=== PATIENT | male | born 1985 | race Caucasian/White ===

== ENCOUNTER 2016-11-20 16:04 | Inpatient (IN) | payer OTHER ==
[2016-11-20 17:37] VITALS: BMI 24.3
--- NOTE | 2016-11-20 17:50 | HP ---
COWS - Scale Resting Pulse: 2= ME 101-120 Sweatin= Chills/Flushing Restless Observation: 3= Extraneous Movement Pupil Size: 0= Normal to Room Light Bone or Joint Aches: 1= Mild Discomfort Runny Nose/ Eye Tearin= Runny Nose/Eyes GI Upset > 30mins: 3= Vomiting/Diarrhea Tremor Observation: 2= Slight Tremor Visible Yawning Observation: 0= None Anxiety or Irritability: 2=Irritable/Anxious Goose Flesh Skin: 0=Smooth Skin COWS Score: 16 Admission [facility] Chief Complaint: withdrawal sx Allergies/Adverse Reactions: Allergies Allergy/AdvReac Type Severity Reaction Status Date / Time No Known Allergies Allergy Verified 11/20/16 17:49 History of Present Illness: 30 years old male with long history of opiate nicotine dependence, denies medical issue has bipolar ii longest sobriety 3 years is admitted to detox Exam Limitations: No Limitations - Ebola screening Have you traveled outside of the country in the last 21 days: No Have you had contact with anyone from an Ebola affected area: No Have you been sick,other than usual withdrawal symptoms: No Do you have a fever: No - Review of Systems Constitutional: Chills, Loss of Appetite, Changes in sleep, Unexplained wgt Loss EENT: reports: Blurred Vision (left eye x "months") Respiratory: reports: Cough, SOB at Rest Cardiac: reports: Palpitations GI: reports: Diarrhea, Nausea, Poor Appetite, Poor Fluid Intake, Vomiting, Indigestion, Abdominal cramping : reports: No Symptoms Reported Musculoskeletal: reports: Back Pain Integumentary: reports: No Symptoms Reported Neuro: reports: Tremors Endocrine: reports: No Symptoms Reported Hematology: reports: No Symptoms Reported Psychiatric: reports: Judgement Intact, Orientated x3 Other Systems: Reviewed and Negative Patient History - Patient Medical History Hx Anemia: No Hx Asthma: No Hx Chronic Obstructive Pulmonary Disease (COPD): No Hx Cancer: No Hx Cardiac Disorders: No Hx Congestive Heart Failure: No Hx Hypertension: No Hx Hypercholesterolemia: No Hx Pacemaker: No HX Cerebrovascular Accident: No Hx Seizures: No Hx Dementia: No Hx Diabetes: No Hx Gastrointestinal Disorders: No Hx Liver Disease: No Hx Genitourinary Disorders: No Hx Sexually Transmitted Disorders: No Hx Renal Disease (ESRD): No Hx Thyroid Disease: No Hx Human Immunodeficiency Virus (HIV): No Hx Hepatitis C: No Hx Depression: No Hx Suicide Attempt: No Hx Bipolar Disorder: Yes Hx Schizophrenia: No - Patient Surgical History Past Surgical History: No - PPD History Previous Implant?: Yes Documented Results: Negative w/o proof Implanted On Prior [facility] Admission?: No PPD to be Administered?: Yes - Smoking Cessation Smoking history: Current every day smoker Have you smoked in the past 12 months: Yes Aproximately how many cigarettes per day: 10 Cigars Per Day: 0 Hx Chewing Tobacco Use: No Initiated information on smoking cessation: Yes 'Breaking Loose' booklet given: 11/20/16 - Substance & Tx. History Hx Alcohol Use: No Hx Substance Use: Yes Substance Use Type: Cocaine, Marijuana, Opiates Hx Substance Use Treatment: Yes - Substances Abused Heroin Route: Inhalation Frequency: Daily Amount used: 20 bags Age of first use: 20 Date of Last Use: 11/19/16 Family Disease History - Family Disease History Family Disease History: Diabetes: Father, Heart Disease: Father, Other: Mother ( kidney) Admission Physical Exam S - Vital Signs Vital Signs: Vital Signs - 24 hr 11/20/16 17:34 Temperature 99.2 F Pulse Rate 102 H Respiratory 20 Rate Blood Pressure 126/81 - Physical General Appearance: Yes: Appropriately Dressed, Moderate Distress, Thin, Tremorous, Irritable, Sweating, Anxious HEENTM: Yes: Hearing grossly Normal, Normal ENT Inspection, Normocephalic, Normal Voice Neck: Yes: Supple, Trachea in good position Breast: Yes: Breasts Symetrical Cardiology: Yes: Tachycardia Abdominal: Yes: Non Tender, Soft, Increased Bowel Sounds Genitourinary: Yes: Within Normal Limits Back: Yes: Normal Inspection Musculoskeletal: Yes: full range of Motion, Gait Steady, Back pain Extremities: Yes: Normal Range of Motion, Non-Tender, Tremors Neurological: Yes: Fully Oriented, Alert, Motor Strength 5/5, Normal Response Integumentary: Yes: Warm Lymphatic: Yes: Within Normal Limits - Diagnostic (1) Opioid dependence with withdrawal Current Visit: Yes Status: Acute (2) Cocaine dependence, uncomplicated Current Visit: Yes Status: Chronic (3) Cannabis dependence, uncomplicated Current Visit: Yes Status: Chronic (4) Nicotine dependence Current Visit: Yes Status: Acute Qualifiers: Nicotine product type: cigarettes Substance use status: in withdrawal Qualified Code(s): F17.213 - Nicotine dependence, cigarettes, with withdrawal (5) Weight loss Current Visit: Yes Status: Acute (6) Bipolar II disorder Current Visit: Yes Status: Suspected (7) GERD (gastroesophageal reflux disease) Current Visit: Yes Status: Acute Qualifiers: Esophagitis presence: without esophagitis Qualified Code(s): K21.9 - Gastro-esophageal reflux disease without esophagitis Cleared for Admission S - Detox or Rehab [facility] Level of Care: Medically Managed Detox Regimen/Protocol: Methadone S Breath Alcohol Content Breath Alcohol Content: 0 Urine Drug Screen - Control Is Test Valid: Yes - Results Drug Screen Negative: No Urine Drug Screen Results: THC-Marijuana, BRISEIDA-Cocaine, OPI-Opiates, MTD- Methadone, TCA-Tricyclic Antidepress, OXY-Oxycodone
[2016-11-20] MEDS ORDERED: LOPERAMIDE HCL 2 MG CAPSULE PO PRN (17:57)
[2016-11-20] MEDS ORDERED: MAGNESIUM CITRATE 300 ML BOTTLE PO PRN (17:57)
[2016-11-20] MEDS ORDERED: guaiFENesin/D-METHORPHAN HB 10 ML UNIT-DOSE CUPS PO PRN (17:57)
[2016-11-20] MEDS ORDERED: MAG HYDROX/AL HYDROX/SIMETH 30 ML UNIT-DOSE CUP PO PRN (17:57)
[2016-11-20] MEDS ORDERED: ACETAMINOPHEN 325 MG TABLET (FP) PO PRN (17:57)
[2016-11-20] MEDS ORDERED: MENTHOL/PHENOL 1 EACH UD MM PRN (17:57)
[2016-11-20] MEDS ORDERED: METHADONE HCL 10 MG TABLET (FOR DETOX USE ONLY) PO ONE ×2 (18:30→23:00)
[2016-11-20] MEDS: diazePAM 5 MG TABLET PO PRN (19:23)
[2016-11-20 20:35] LABS: URINE APPEARANCE CLOUDY; URINE BILIRUBIN NEGATIVE (NEGATIVE); URINE BLOOD NEGATIVE (NEGATIVE); URINE COLOR DKYELLOW; URINE GLUCOSE (UA) NEGATIVE (NEGATIVE); URINE KETONE 2+ (NEGATIVE); URINE LEUK ESTERASE NEGATIVE (NEGATIVE); URINE NITRITE NEGATIVE (NEGATIVE); URINE UROBILINOGEN 2.0 E.U/dl E.U./dl (0.2-1.0)
[2016-11-20 20:41] LABS: URINE PROTEIN 1+ (NEGATIVE)
[2016-11-20 20:47] LABS: URINE MUCUS MANY; URINE RBC 7 /hpf (0-3); URINE WBC 17 /hpf (3-5); YEAST MANY
[2016-11-20] MEDS: THIAMINE HCL 100 MG TABLET (FP) PO SCH (22:30)
[2016-11-20] MEDS: RANITIDINE HCL 150 MG TABLET (FP) PO SCH (22:30)
[2016-11-21] MEDS: diazePAM 5 MG TABLET PO PRN ×3 (07:18→20:41)
[2016-11-21] MEDS: ONDANSETRON *ODT* 4 MG TABLET SL PRN (08:51)
--- NOTE | 2016-11-21 08:52 | CONSULT ---
[facility] Psychiatric Consult - Data Date of interview: 11/21/16 Admission source: [facility] Identifying data: This is 30 years old male with history of Bipolar disorder intoxicated with Heroin and Nicotine, Cannabis, Cocaine Substance Abuse History: - Smoking Cessation. Smoking history: Current every day smoker. Have you smoked in the past 12 months: Yes. Aproximately how many cigarettes per day: 10. Cigars Per Day: 0. Hx Chewing Tobacco Use: No. Initiated information on smoking cessation: Yes. 'Breaking Loose' booklet given : 11/20/16. - Substance & Tx. History. Hx Alcohol Use: No. Hx Substance Use: Yes. Substance Use Type: Cocaine, Marijuana, Opiates. Hx Substance Use Treatment: Yes. - Substances Abused. Heroin. Route: Inhalation. Frequency : Daily. Amount used: 20 bags. Age of first use: 20. Date of Last Use: Medical History: GERD, Weight loss history Psychiatric History: Patient reprotsm unclear history of Bipolar disorder, demies history of psychiatric admissions, reports no medications taking prior to admission Physical/Sexual Abuse/Trauma History: Denies Additional Comment: 0bservation. Detox Unit Care Protocol. Urine Drug Screen Results: THC-Marijuana, BRISEIDA-Cocaine, OPI-Opiates, MTD-Methadone, TCA-Tricyclic Antidepress, OXY-Oxycodone Mental Status Exam - Mental Status Exam Alert and Oriented to: Person Cognitive Function: Fair Patient Appearance: Well Groomed Mood: Apprehensive Affect: Mood Congruent Patient Behavior: Cooperative Speech Pattern: Appropriate Voice Loudness: Normal Thought Process: Goal Oriented Thought Disorder: Being Controlled Hallucinations: Denies Suicidal Ideation: Denies Homicidal Ideation: Denies Sleep: Difficulty falling asleep Appetite: Fair Muscle strength/Tone: Normal Gait/Station: Normal Additional Comments: 0bservation. Detox Unit Care Protocol Psychiatric Findings - Problem List ([place] 1, 2,3) (1) Nicotine dependence Current Visit: Yes Status: Acute Qualifiers: Nicotine product type: cigarettes Substance use status: in withdrawal Qualified Code(s): F17.213 - Nicotine dependence, cigarettes, with withdrawal (2) Opioid dependence with withdrawal Current Visit: Yes Status: Acute (3) Cannabis dependence, uncomplicated Current Visit: Yes Status: Chronic (4) Cocaine dependence, uncomplicated Current Visit: Yes Status: Chronic (5) Drug-induced mood disorder Current Visit: Yes Status: Acute - Initial Treatment Plan Initial Treatment Plan: 0bservation. Detox Unit Care Protocol
[2016-11-21] MEDS ORDERED: cloNIDine HCL 0.1 MG TABLET PO ONE (09:51)
[2016-11-21] MEDS ORDERED: METHADONE HCL 10 MG TABLET (FOR DETOX USE ONLY) PO ONE (10:00)
[2016-11-21 10:06] LABS: MCH 30.8 pg (25.7-33.7); MCHC 33.9 g/dl (32.0-35.9); MEAN CELL VOLUME 90.9 fl (80-96); MEAN PLT VOLUME 8.3 fl (7.5-11.1); PLATELET COUNT 329 K/MM3 (134-434); RDW 13.7 % (11.9-15.9); WHITE BLOOD COUNT 6.7 K/mm3 (4.0-10.0)
[2016-11-21 10:19] LABS: ALBUMIN 4.1 g/dl (3.4-5.0); ANION GAP 8 (8-16); CALCIUM 9.1 mg/dL (8.5-10.1); CO2 29 mmol/L (21-32); CREATININE 0.9 mg/dL (0.7-1.3); GLUCOSE,RANDOM 87 mg/dL (74-106); SGOT/AST 21 U/L (15-37); SGPT/ALT 35 U/L (12-78)
[2016-11-21 10:21] LABS: ALK PHOS 79 U/L (45-117); BILIRUBIN,TOTAL 0.6 mg/dL (0.2-1.0); TOT PROT 7.8 g/dl (6.4-8.2)
[2016-11-21] MEDS: PRENATAL VITAMINS W/ FOLIC ACID TABLET (FP) PO SCH (10:21)
[2016-11-21] MEDS: RANITIDINE HCL 150 MG TABLET (FP) PO SCH ×2 (10:21→22:40)
[2016-11-21] MEDS: NICOTINE 14 MG/24 HOURS TOPICAL PATCH TD SCH (10:22)
--- NOTE | 2016-11-21 10:40 | PN ---
S COWS - Scale Resting Pulse: 2= ID 101-120 Sweatin=Flushed/Facial Moisture Restless Observation: 1= Difficult to Sit Still Pupil Size: 0= Normal to Room Light Bone or Joint Aches: 2= Severe Diffuse Aches Runny Nose/ Eye Tearin= None GI Upset > 30mins: 2= Nausea/Diarrhea Tremor Observation of Outstretched Hands: 2= Slight Tremor Visible Yawning Observation: 1= 1-2x During Session Anxiety or Irritability: 2=Irritable/Anxious Goose Flesh Skin: 3=Piloerection COWS Score: 17 BHS Progress Note (SOAP) Subjective: nausea sweats muscle spasms shakes agitation interrupted sleep irritable Objective: 11/21/16 10:39 Vital Signs Temperature 95.7 F L 11/21/16 09:52 Pulse Rate 124 H 11/21/16 09:52 Respiratory Rate 16 11/21/16 09:52 Blood Pressure 129/77 11/21/16 09:52 O2 Sat by Pulse Oximetry (%) Laboratory Tests 11/20/16 11/21/16 11/21/16 19:45 07:00 07:00 WBC 6.7 RBC 4.47 Hgb 13.8 Hct 40.6 MCV 90.9 MCHC 33.9 RDW 13.7 Plt Count 329 MPV 8.3 Sodium 141 Potassium 4.2 Chloride 104 Carbon Dioxide 29 Anion Gap 8 BUN 12 Creatinine 0.9 Creat Clearance w eGFR > 60 Random Glucose 87 Calcium 9.1 Total Bilirubin 0.6 AST 21 ALT 35 Alkaline Phosphatase 79 Total Protein 7.8 Albumin 4.1 Urine Color Dkyellow Urine Appearance Cloudy Urine pH 7.0 Ur Specific [place] 1.030 Urine Protein 1+ H Urine Glucose (UA) Negative Urine Ketones 2+ H Urine Blood Negative Urine Nitrite Negative Urine Bilirubin Negative Urine Urobilinogen 2.0 e.u/dl Ur Leukocyte Esterase Negative Urine RBC 7 Urine WBC 17 Urine Mucus Many Urine Yeast Many repeat u/a awake/alert ambulating no acute distress Assessment: 11/21/16 10:39 withdrawal sx Plan: continue detox increase fluids clonidine 0.1mg x one flexiril 10mg prn
--- NOTE | 2016-11-21 12:41 | EKG ---
Test Reason : Blood Pressure : / mmHG Vent. Rate : 085 BPM Atrial Rate : 085 BPM P-R Int : 124 ms QRS Dur : 092 ms QT Int : 366 ms P-R-T Axes : 037 076 044 degrees QTc Int : 435 ms NORMAL SINUS RHYTHM MODERATE VOLTAGE CRITERIA FOR LVH, MAY BE NORMAL VARIANT BORDERLINE ECG NO PREVIOUS ECGS AVAILABLE Confirmed by RONAL RIOS MD ([id number]) on 11/21/2016 12:41:29 PM Referred By: Confirmed By:RONAL RIOS MD
[2016-11-21] MEDS: MAGNESIUM HYDROX 2400MG/30ML ORAL SUSPENSION 30 ML CUP PO PRN (15:50)
[2016-11-21] MEDS: THIAMINE HCL 100 MG TABLET (FP) PO SCH (22:40)
[2016-11-21] MEDS: diphenhydrAMINE HCL 50 MG CAPSULE PO PRN (22:41)
[2016-11-22] MEDS: diazePAM 5 MG TABLET PO PRN ×3 (08:32→22:29)
[2016-11-22] MEDS: ONDANSETRON *ODT* 4 MG TABLET SL PRN (08:32)
[2016-11-22] MEDS: P-EPHED 60MG/TRIPROLIDI 2.5MG TABLET PO PRN ×2 (08:32→17:04)
[2016-11-22] MEDS ORDERED: METHADONE HCL 5 MG TABLET (FOR DETOX USE ONLY) PO ONE (10:00)
[2016-11-22] MEDS: PRENATAL VITAMINS W/ FOLIC ACID TABLET (FP) PO SCH (10:22)
[2016-11-22] MEDS: NICOTINE 14 MG/24 HOURS TOPICAL PATCH TD SCH (10:23)
[2016-11-22] MEDS: RANITIDINE HCL 150 MG TABLET (FP) PO SCH ×2 (10:23→22:29)
[2016-11-22] MEDS: CYCLOBENZAPRINE HCL 10 MG TABLET (FP) PO PRN (10:23)
--- NOTE | 2016-11-22 10:28 | PN ---
BHS COWS - Scale Resting Pulse: 1= NE 81-100 Sweatin=Flushed/Facial Moisture Restless Observation: 1= Difficult to Sit Still Pupil Size: 0= Normal to Room Light Bone or Joint Aches: 1= Mild Discomfort Runny Nose/ Eye Tearin= Runny Nose/Eyes GI Upset > 30mins: 0= None Tremor Observation of Outstretched Hands: 2= Slight Tremor Visible Yawning Observation: 2= >3x During Session Anxiety or Irritability: 1=Feels Anxious/Irritable Goose Flesh Skin: 0=Smooth Skin COWS Score: 12 BHS Progress Note (SOAP) Subjective: nasal excoriation sweats shakes agitation interrupted sleep Objective: 11/22/16 10:27 Vital Signs Temperature 96.4 F L 11/22/16 09:31 Pulse Rate 79 11/22/16 09:31 Respiratory Rate 18 11/22/16 09:31 Blood Pressure 116/66 11/22/16 09:31 O2 Sat by Pulse Oximetry (%) Laboratory Tests 11/20/16 11/21/16 11/21/16 19:45 07:00 07:00 WBC 6.7 RBC 4.47 Hgb 13.8 Hct 40.6 MCV 90.9 MCHC 33.9 RDW 13.7 Plt Count 329 MPV 8.3 Sodium 141 Potassium 4.2 Chloride 104 Carbon Dioxide 29 Anion Gap 8 BUN 12 Creatinine 0.9 Creat Clearance w eGFR > 60 Random Glucose 87 Calcium 9.1 Total Bilirubin 0.6 AST 21 ALT 35 Alkaline Phosphatase 79 Total Protein 7.8 Albumin 4.1 Urine Color Dkyellow Urine Appearance Cloudy Urine pH 7.0 Ur Specific [place] 1.030 Urine Protein 1+ H Urine Glucose (UA) Negative Urine Ketones 2+ H Urine Blood Negative Urine Nitrite Negative Urine Bilirubin Negative Urine Urobilinogen 2.0 e.u/dl Ur Leukocyte Esterase Negative Urine RBC 7 Urine WBC 17 Urine Mucus Many Urine Yeast Many RPR Titer Hepatitis C Antibody 11/21/16 11/21/16 07:00 07:00 WBC RBC Hgb Hct MCV MCHC RDW Plt Count MPV Sodium Potassium Chloride Carbon Dioxide Anion Gap BUN Creatinine Creat Clearance w eGFR Random Glucose Calcium Total Bilirubin AST ALT Alkaline Phosphatase Total Protein Albumin Urine Color Urine Appearance Urine pH Ur Specific [place] Urine Protein Urine Glucose (UA) Urine Ketones Urine Blood Urine Nitrite Urine Bilirubin Urine Urobilinogen Ur Leukocyte Esterase Urine RBC Urine WBC Urine Mucus Urine Yeast RPR Titer Nonreactive Hepatitis C Antibody <0.1 repeat u/a awake/alert ambulating no acute distress Assessment: 11/22/16 10:29 withdrawal sx Plan: continue detox increase fluids repeat u/a result pending muprocin oint to nasal area ordered
[2016-11-22] MEDS: MUPIROCIN 2% TOPICAL OINTMENT 22 GM TUBE TP SCH ×2 (12:13→22:29)
[2016-11-22 14:30] LABS: URINE APPEARANCE CLEAR; URINE BILIRUBIN NEGATIVE (NEGATIVE); URINE BLOOD NEGATIVE (NEGATIVE); URINE COLOR YELLOW; URINE GLUCOSE (UA) NEGATIVE (NEGATIVE); URINE KETONE NEGATIVE (NEGATIVE); URINE LEUK ESTERASE NEGATIVE (NEGATIVE); URINE NITRITE NEGATIVE (NEGATIVE); URINE PROTEIN NEGATIVE (NEGATIVE); URINE UROBILINOGEN NEGATIVE E.U./dl (0.2-1.0)
[2016-11-22] MEDS: diphenhydrAMINE HCL 50 MG CAPSULE PO PRN (22:29)
[2016-11-22] MEDS: THIAMINE HCL 100 MG TABLET (FP) PO SCH (22:29)
[2016-11-23] MEDS: diazePAM 5 MG TABLET PO PRN ×4 (05:19→17:26)
[2016-11-23] MEDS ORDERED: METHADONE HCL 5 MG TABLET (FOR DETOX USE ONLY) PO ONE (10:00)
[2016-11-23] MEDS: PRENATAL VITAMINS W/ FOLIC ACID TABLET (FP) PO SCH (10:16)
[2016-11-23] MEDS: MUPIROCIN 2% TOPICAL OINTMENT 22 GM TUBE TP SCH ×2 (10:16→22:16)
[2016-11-23] MEDS: RANITIDINE HCL 150 MG TABLET (FP) PO SCH ×2 (10:16→22:16)
[2016-11-23] MEDS: NICOTINE 14 MG/24 HOURS TOPICAL PATCH TD SCH (10:16)
[2016-11-23] MEDS: CYCLOBENZAPRINE HCL 10 MG TABLET (FP) PO PRN ×2 (10:16→22:16)
--- NOTE | 2016-11-23 10:51 | PN ---
S Progress Note (SOAP) Subjective: ALERT,IRRITABLE,ANXIOUS,INTERRUPTED SLEEP,PAIN IN THE BODY AND BACK Objective: 11/23/16 10:50 Vital Signs Temperature 97.7 F 11/23/16 06:00 Pulse Rate 72 11/23/16 06:00 Respiratory Rate 18 11/23/16 06:00 Blood Pressure 109/60 11/23/16 06:00 O2 Sat by Pulse Oximetry (%) Assessment: 11/23/16 10:50 WITHDRAWAL SYMPTOM Plan: CONTINUE DETOX
[2016-11-23] MEDS: MAGNESIUM HYDROX 2400MG/30ML ORAL SUSPENSION 30 ML CUP PO PRN (13:21)
[2016-11-23] MEDS: THIAMINE HCL 100 MG TABLET (FP) PO SCH (22:16)
[2016-11-23] MEDS: diphenhydrAMINE HCL 50 MG CAPSULE PO PRN (22:18)
[2016-11-24] MEDS: hydrOXYzine PAMOATE 50 MG CAPSULE (FP) PO PRN ×3 (09:00→17:34)
[2016-11-24] MEDS: P-EPHED 60MG/TRIPROLIDI 2.5MG TABLET PO PRN ×2 (09:01→17:34)
[2016-11-24] MEDS ORDERED: METHADONE HCL 10 MG TABLET (FOR DETOX USE ONLY) PO ONE (10:00)
[2016-11-24] MEDS: CYCLOBENZAPRINE HCL 10 MG TABLET (FP) PO PRN (10:00)
[2016-11-24] MEDS: PRENATAL VITAMINS W/ FOLIC ACID TABLET (FP) PO SCH (10:27)
[2016-11-24] MEDS: cloNIDine HCL 0.1 MG TABLET PO SCH ×2 (10:28→22:21)
[2016-11-24] MEDS: NICOTINE 14 MG/24 HOURS TOPICAL PATCH TD SCH (10:28)
[2016-11-24] MEDS: MUPIROCIN 2% TOPICAL OINTMENT 22 GM TUBE TP SCH ×2 (10:28→22:20)
[2016-11-24] MEDS: RANITIDINE HCL 150 MG TABLET (FP) PO SCH ×2 (10:29→22:21)
--- NOTE | 2016-11-24 11:44 | PN ---
S Progress Note (SOAP) Subjective: ALERT,IRRITABLE,ANXIOUS,INTERRUPTED SLEEP Objective: 11/24/16 11:44 Vital Signs Temperature 97.7 F 11/24/16 10:00 Pulse Rate 88 11/24/16 10:00 Respiratory Rate 18 11/24/16 10:00 Blood Pressure 109/75 11/24/16 10:00 O2 Sat by Pulse Oximetry (%) Assessment: 11/24/16 11:44 WITHDRAWAL SYMPTOM Plan: CONTINUE DETOX
[2016-11-24] MEDS: NICOTINE POLACRILEX 2 MG GUM BUC PRN (20:13)
[2016-11-24] MEDS: THIAMINE HCL 100 MG TABLET (FP) PO SCH (22:21)
[2016-11-24] MEDS: diphenhydrAMINE HCL 50 MG CAPSULE PO PRN (22:23)
[2016-11-25] MEDS: hydrOXYzine PAMOATE 50 MG CAPSULE (FP) PO PRN ×2 (05:47→10:25)
[2016-11-25] MEDS: NICOTINE POLACRILEX 2 MG GUM BUC PRN ×2 (05:48→10:25)
[2016-11-25] MEDS ORDERED: METHADONE HCL 5 MG TABLET (FOR DETOX USE ONLY) PO ONE (06:00)
[2016-11-25] MEDS: cloNIDine HCL 0.1 MG TABLET PO SCH (10:23)
[2016-11-25] MEDS: PRENATAL VITAMINS W/ FOLIC ACID TABLET (FP) PO SCH (10:23)
[2016-11-25] MEDS: CYCLOBENZAPRINE HCL 10 MG TABLET (FP) PO PRN (10:23)
[2016-11-25] MEDS: RANITIDINE HCL 150 MG TABLET (FP) PO SCH (10:23)
[2016-11-25] MEDS: NICOTINE 14 MG/24 HOURS TOPICAL PATCH TD SCH (10:24)
--- NOTE | 2016-11-25 10:36 | PN ---
S Progress Note (SOAP) Subjective: ALERT,NO COMPLAINT Objective: 11/25/16 10:35 Vital Signs Temperature 97.0 F L 11/25/16 07:36 Pulse Rate 79 11/25/16 07:36 Respiratory Rate 18 11/25/16 07:36 Blood Pressure 104/63 11/25/16 07:36 O2 Sat by Pulse Oximetry (%) Assessment: 11/25/16 10:35 DETOX COMPLETED,NO WITHDRAWAL SYMPTOM Plan: DISCHARGE TODAY,FOLLOW UP WITH AFTER CARE PROGRAM [facility]
[2016-11-25 10:39] VITALS: BP 111/55; PULSE 77; TEMP 98.5
--- NOTE | 2016-11-25 10:41 | DS ---
[facility] Detox Discharge Summary Admission Date: 11/20/16 Discharge Date: 11/25/16 - History Present History: Cannabis Dependence, Cocaine Dependence, Opioid Dependence Additional Comments: FOLLOW UP WITH AFTER CARE PROGRAM [facility] Pertinent Past History: GERD WEIGHT LOSS BIPOLAR 2 DISORDER 2 DISORDER - Physical Exam Results Vital Signs: Vital Signs Temperature 97.0 F L 11/25/16 07:36 Pulse Rate 79 11/25/16 07:36 Respiratory Rate 18 11/25/16 07:36 Blood Pressure 104/63 11/25/16 07:36 O2 Sat by Pulse Oximetry (%) Pertinent Admission Physical Exam Findings: WITHDRAWAL SYMPTOM - Treatment Hospital Course: Detox Protocol Followed, Detoxed Safely, Responded well, Discharged Condition Good, Rehab Referral Accepted Patient has Accepted a Rehab Referral to: [facility] - Medication Discharge Medications: Ambulatory Orders Unobtainable [Unobtainable] 11/20/16 - AMA Did Patient Leave Against Medical Advice: No
== END 2016-11-25 12:15 | disposition other institution (70) | DRG 773 ==
LOC: YASAS 16:04 → Y6N 18:23
PROVIDERS: ADMIT Internal Medicine Addiction Medicine; ATTEND Internal Medicine Addiction Medicine
PROC: HZ2ZZZZ Detoxification Services for Substance Abuse Treatment (ICD-10-PCS; principal; 2016-11-25)
DX: F11.23 Opioid dependence with withdrawal (principal); F14.20 Cocaine dependence, uncomplicated; F12.20 Cannabis dependence, uncomplicated; F17.210 Nicotine dependence, cigarettes, uncomplicated; F19.24 Other psychoactive substance dependence with psychoactive substance-induced mood disorder
CPT/HCPCS: 36415; 80053; 81003; 81015; 85027; 86593; 86803; 93005; 93010

== ENCOUNTER 2016-11-25 14:13 | Inpatient (IN) | payer OTHER ==
[2016-11-25] MEDS ORDERED: MAG HYDROX/AL HYDROX/SIMETH 30 ML UNIT-DOSE CUP PO PRN (14:29)
[2016-11-25] MEDS ORDERED: guaiFENesin/D-METHORPHAN HB 10 ML UNIT-DOSE CUPS PO PRN (14:29)
[2016-11-25] MEDS ORDERED: MAGNESIUM HYDROX 2400MG/30ML ORAL SUSPENSION 30 ML CUP PO PRN (14:29)
[2016-11-25] MEDS ORDERED: MAGNESIUM CITRATE 300 ML BOTTLE PO PRN (14:29)
[2016-11-25] MEDS ORDERED: P-EPHED 60MG/TRIPROLIDI 2.5MG TABLET PO PRN (14:29)
[2016-11-25] MEDS ORDERED: IBUPROFEN 400 MG TABLET (FP) PO PRN (14:29)
[2016-11-25] MEDS ORDERED: MENTHOL/PHENOL 1 EACH UD MM PRN (14:29)
[2016-11-25] MEDS ORDERED: LOPERAMIDE HCL 2 MG CAPSULE PO PRN (14:29)
--- NOTE | 2016-11-25 14:34 | HP ---
[facility] Rehab Assess/Revision - Admission History Admitted to Rehab [facility]: [facility] Date of Admission to Rehab: 11/25/16 - Vital signs Vital Signs: Vital Signs Period Temp Pulse Resp BP Sys/Albert Pulse Ox Last 24 Hr 98.7 F 79 112/78 - Findings Detox History & Physical reviewed: Yes Concur with findings: Yes Comments/Additional Findings: FOR REHAB PROTOCOL
[2016-11-25] MEDS: NICOTINE 21 MG/24 HOURS TOPICAL PATCH TD SCH (15:09)
[2016-11-25] MEDS: hydrOXYzine PAMOATE 50 MG CAPSULE (FP) PO PRN ×2 (15:52→21:04)
[2016-11-25] MEDS: NICOTINE POLACRILEX 2 MG GUM BUC PRN ×2 (15:52→19:03)
[2016-11-25] MEDS: THIAMINE HCL 100 MG TABLET (FP) PO SCH (21:04)
[2016-11-25] MEDS: diphenhydrAMINE HCL 50 MG CAPSULE PO PRN (21:52)
--- NOTE | 2016-11-26 07:37 | HP ---
Psychiatrist Admission - Data Date of interview: 11/26/16 Admission source: [facility] Identifying data: This is the first [facility] admission for this 30 years old male, father of a 3 years old daughter, unemployed on food stamp, homeless seeking rehab treatment for heroin, cocaine and marijuana. seeking rehab treatment for heroin and marijuana Medical History: Unremarkable Psychiatric History: Reports that his first psychiatric contact was approximately 10 months ago when he was admitted to [facility] for acting strange. He said that he acted like that becuase he was trying to stop using heroin on his own. Reports that he was there for 14 days, diagnosed with Bipolar Disorder and treated with Risperdal. Following discharge, he attended [facility] program for 2 months and was taken off medication by the staff psychiatrist there. Claims he did not complete the program since he was looking for a job.Denies history of suicidal attempt Physical/Sexual Abuse/Trauma History: Denies history of physical, sexual abuse as well as DV relationship Additional Comment: Reports history of arrests for sleeping in a running car and possession of marijuana. Claims the sports trainer gave him a fine when he went to court Vital Signs: Vital Signs - 24 hr 11/25/16 11/26/16 11/26/16 14:30 00:30 03:30 Temperature 98.7 F Pulse Rate 79 Respiratory 18 18 Rate Blood Pressure 112/78 11/26/16 06:00 Temperature 98.1 F Pulse Rate 74 Respiratory 18 Rate Blood Pressure 107/67 Allergies/Adverse Reactions: Allergies Allergy/AdvReac Type Severity Reaction Status Date / Time No Known Allergies Allergy Verified 11/20/16 17:49 Date of last physical exam: 11/20/16 Concur with the findings of this exam: Yes - Substance Abuse/Tx History Hx Alcohol Use: No Hx Substance Use: Yes Substance Use Type: Cocaine (Started using cocaine at age 20, consumes 20 bags daily. Last used on 11/20/16), Heroin (Started using heroin at age 20, consumes 20 bags daily. Last used on 11/19/16), Marijuana (Started smoking marijuana at age 14, consumes 2 bags daily, Last smoked on 11/20/16) Hx Substance Use Treatment: Yes (multiple previous inpt detox & 2-3 inpt rehab( incomplete)) - Admission Criteria Previous failed treatment: Yes Poor recovery environment: Yes Lacks judgement: Yes Mental Status Exam - Mental Status Exam Alert and Oriented to: Time, Place, Person Cognitive Function: Fair Patient Appearance: Well Groomed Mood: Anxious Affect: Appropriate Patient Behavior: Cooperative Speech Pattern: Clear Voice Loudness: Normal Thought Process: Intact Thought Disorder: Not Present Hallucinations: Denies Suicidal Ideation: Denies Homicidal Ideation: Denies Insight/Judgement: Fair Sleep: Poorly Appetite: Good Muscle strength/Tone: Normal Gait/Station: Normal Psychiatric Findings - Problem List ([place] 1, 2,3) (1) Opioid dependence with withdrawal Current Visit: No Status: Acute (2) Cocaine dependence, uncomplicated Current Visit: No Status: Chronic (3) Cannabis dependence, uncomplicated Current Visit: Yes Status: Acute (4) Nicotine dependence Current Visit: No Status: Acute Qualifiers: Nicotine product type: cigarettes Substance use status: in withdrawal Qualified Code(s): F17.213 - Nicotine dependence, cigarettes, with withdrawal (5) Drug-induced mood disorder Current Visit: No Status: Acute (6) GERD (gastroesophageal reflux disease) Current Visit: No Status: Acute Qualifiers: Esophagitis presence: without esophagitis Qualified Code(s): K21.9 - Gastro-esophageal reflux disease without esophagitis - Initial Treatment Plan Initial Treatment Plan: 1) Start Trazadone 100 mg po HS for insomnia. 2) Monitor progress
[2016-11-26] MEDS: NICOTINE 21 MG/24 HOURS TOPICAL PATCH TD SCH (10:02)
[2016-11-26] MEDS: PRENATAL VITAMINS W/ FOLIC ACID TABLET (FP) PO SCH (10:02)
[2016-11-26] MEDS: ACETAMINOPHEN 325 MG TABLET (FP) PO PRN (14:20)
[2016-11-26] MEDS: NICOTINE POLACRILEX 2 MG GUM BUC PRN ×3 (14:21→22:03)
[2016-11-26] MEDS: hydrOXYzine PAMOATE 50 MG CAPSULE (FP) PO PRN ×2 (14:21→19:02)
[2016-11-26] MEDS: THIAMINE HCL 100 MG TABLET (FP) PO SCH (21:04)
[2016-11-26] MEDS: traZODone HCL 100 MG TABLET (FP) PO SCH (21:04)
[2016-11-26] MEDS: cloNIDine HCL 0.1 MG TABLET PO SCH (21:05)
[2016-11-27] MEDS: hydrOXYzine PAMOATE 50 MG CAPSULE (FP) PO PRN (09:07)
[2016-11-27] MEDS: cloNIDine HCL 0.1 MG TABLET PO SCH ×2 (09:49→21:45)
[2016-11-27] MEDS: PRENATAL VITAMINS W/ FOLIC ACID TABLET (FP) PO SCH (09:49)
[2016-11-27] MEDS: NICOTINE 21 MG/24 HOURS TOPICAL PATCH TD SCH (09:50)
[2016-11-27] MEDS: NICOTINE POLACRILEX 2 MG GUM BUC PRN ×3 (09:51→21:46)
[2016-11-27] MEDS: CYCLOBENZAPRINE HCL 10 MG TABLET (FP) PO PRN (12:32)
[2016-11-27] MEDS: ACETAMINOPHEN 325 MG TABLET (FP) PO PRN (17:39)
[2016-11-27 20:26] VITALS: BP 116/70
[2016-11-27] MEDS: THIAMINE HCL 100 MG TABLET (FP) PO SCH (21:45)
[2016-11-27] MEDS: diphenhydrAMINE HCL 50 MG CAPSULE PO PRN (21:45)
[2016-11-27] MEDS: traZODone HCL 100 MG TABLET (FP) PO SCH (23:17)
[2016-11-28] MEDS: CYCLOBENZAPRINE HCL 10 MG TABLET (FP) PO PRN (06:17)
[2016-11-28 06:53] VITALS: PULSE 83; TEMP 98
[2016-11-28] MEDS: PRENATAL VITAMINS W/ FOLIC ACID TABLET (FP) PO SCH (10:10)
[2016-11-28] MEDS: NICOTINE 21 MG/24 HOURS TOPICAL PATCH TD SCH (10:10)
[2016-11-28] MEDS: ACETAMINOPHEN 325 MG TABLET (FP) PO PRN (10:10)
[2016-11-28] MEDS: cloNIDine HCL 0.1 MG TABLET PO SCH (10:10)
[2016-11-28] MEDS: NICOTINE POLACRILEX 2 MG GUM BUC PRN (10:12)
--- NOTE | 2016-11-28 14:28 | PN ---
Psychiatric Progress Note Vital Signs: Vital Signs Period Temp Pulse Resp BP Sys/Albert Pulse Ox Last 24 Hr 98 F 76-83 16-18 116-116/70-70 Date of Session: 11/28/16 Chief Complaint:: AMA Psychiatrist Discharge Note HPI: Patient addressing Opoid, Cocaine and Cannabis Dependence comorbid with Nicotine Dependence and Substance-Induced Mood Disorder ROS: GERD Current Medications: Active Medications Generic Name Dose Route Start Last Admin Trade Name Freq PRN Reason Stop Dose Admin Acetaminophen 650 mg 11/25/16 14:29 11/28/16 10:10 Tylenol - PO 650 mg Q4H PRN Administration FEVER OR PAIN Al Hydroxide/Mg Hydroxide 30 ml 11/25/16 14:29 Mylanta Oral Suspension - PO Q6H PRN DYSPEPSIA Clonidine 0.1 mg 11/26/16 22:00 11/28/16 10:10 Catapres - PO 11/29/16 23:59 0.1 mg BID VALENTINA Administration Cyclobenzaprine HCl 10 mg 11/26/16 13:29 11/28/16 06:17 Flexeril - PO 11/29/16 23:59 10 mg TID PRN Administration MUSCLE SPASMS Diphenhydramine HCl 50 mg 11/25/16 14:29 11/27/16 21:45 Benadryl - PO 50 mg HSMR1 PRN Administration FOR ITCHING Eucalyptus/Menthol/Phenol/Sorbitol 1 each 11/25/16 14:29 Cepastat Lozenge - MM Q4H PRN SORE THROAT Guaifenesin 10 ml 11/25/16 14:29 Robitussin Dm - PO Q6H PRN COUGH Hydroxyzine Pamoate 50 mg 11/25/16 14:29 11/27/16 09:07 Vistaril - PO 50 mg Q4H PRN Administration AGITATION Ibuprofen 400 mg 11/25/16 14:29 11/26/16 12:12 Motrin - PO 400 mg Q6H PRN Administration PAIN Loperamide HCl 4 mg 11/25/16 14:29 Imodium - PO Q6H PRN DIARRHEA Magnesium Hydroxide 30 ml 11/25/16 14:29 11/25/16 21:07 Milk Of Magnesia - PO 30 ml DAILY PRN Administration CONSTIPATION Nicotine 21 mg 11/25/16 14:30 11/28/16 10:10 Nicoderm Patch - TD Not Given DAILY VALENTINA Nicotine Polacrilex 2 mg 11/25/16 14:29 11/28/16 10:12 Nicorette Gum - BUC 2 mg Q2H PRN Administration NICOTINE REPLACEMENT RX Multivit/Folic Acid/Iron 1 tab 11/26/16 10:00 11/28/16 10:10 Vitamins ([facility]) - PO 1 tab DAILY VALENTINA Administration Pseudoephedrine/Triprolidine 1 combo 11/25/16 14:29 11/27/16 12:32 Actifed - PO 1 combo TID PRN Administration NASAL CONGESTION Thiamine HCl 100 mg 11/25/16 22:00 11/27/16 21:45 Vitamin B1 - PO 100 mg HS VALENTINA Administration Trazodone HCl 100 mg 11/26/16 22:00 11/27/16 23:17 Desyrel - PO Not Given HS VALENTINA Current Side Effect: No Lab tests ordered: Yes Lab tests reviewed: Yes Provider note:: Patient requests to leave against medical advice to take care of personal issues like paying bills and looking for a place to stay. He was determined to leave despite counseling in order to stay and complete the program. He was placed on Trazadone 100 mg po HS for insomnia with good result. Script for 30 days supply of that medication is electronically transmitted to [facility] at [address] [place] [address]. He is stable for discharge against medical advice Total face to face time:: 25 Mental Status Exam - Mental Status Exam Alert and Oriented to: Time, Place, Person Cognitive Function: Fair Patient Appearance: Well Groomed Mood: Hopeful, Euthymic Affect: Appropriate Patient Behavior: Cooperative Speech Pattern: Clear Voice Loudness: Normal Thought Process: Intact Thought Disorder: Not Present Hallucinations: Denies Suicidal Ideation: Denies Homicidal Ideation: Denies Insight/Judgement: Poor Sleep: Fair Appetite: Good Muscle strength/Tone: Normal Gait/Station: Normal Psychiatric Treatment Plan - Problem List (1) Opioid dependence with withdrawal Current Visit: No (2) Cocaine dependence, uncomplicated Current Visit: No (3) Cannabis dependence, uncomplicated Current Visit: Yes (4) Nicotine dependence Current Visit: No Qualifiers: Nicotine product type: cigarettes Substance use status: in withdrawal Qualified Code(s): F17.213 - Nicotine dependence, cigarettes, with withdrawal (5) Drug-induced mood disorder Current Visit: No (6) GERD (gastroesophageal reflux disease) Current Visit: No Qualifiers: Esophagitis presence: without esophagitis Qualified Code(s): K21.9 - Gastro-esophageal reflux disease without esophagitis Initial treatment plan: Patient is discharged AMA
== END 2016-11-28 03:25 | disposition left against medical advice (07) | DRG 770 ==
LOC: YASAS 14:13 → Y3W 14:23
PROVIDERS: ADMIT Psychiatry & Neurology Psychiatry; ATTEND Psychiatry & Neurology Psychiatry
PROC: HZ42ZZZ Group Counseling for Substance Abuse Treatment, Cognitive-Behavioral (ICD-10-PCS; principal; 2016-11-28)
DX: F11.23 Opioid dependence with withdrawal (principal); F14.20 Cocaine dependence, uncomplicated; F12.20 Cannabis dependence, uncomplicated; F17.213 Nicotine dependence, cigarettes, with withdrawal; F19.24 Other psychoactive substance dependence with psychoactive substance-induced mood disorder; K21.9 Gastro-esophageal reflux disease without esophagitis

== ENCOUNTER 2017-03-14 10:50 | Inpatient (IN) | payer OTHER ==
[2017-03-14 12:13] VITALS: BMI 25.4
--- NOTE | 2017-03-14 15:53 | HP ---
Screened but not Admitted - Documentation of Visit Screened but not Admitted: Yes Patient Does Not Meet Criteria for Admission: Yes Alternative Treatment/Longterm Info Provided: Yes Additional Information/Explanation: referred back to his [facility] program
--- NOTE | 2017-03-14 19:51 | HP ---
Admission ROS [facility] Chief Complaint: I WANT TO GO TO REHAB Allergies/Adverse Reactions: Allergies Allergy/AdvReac Type Severity Reaction Status Date / Time peanut Allergy Severe Swelling Verified 03/14/17 18:12 History of Present Illness: 31 YEARS OLD MALE WITH LONG HISTORY OF MARIJUANA NICOTINE DEPENDENCE METHADONE 70 MG IS ADMITTED TO REHAB Exam Limitations: No Limitations - Ebola screening Have you traveled outside of the country in the last 21 days: No Have you had contact with anyone from an Ebola affected area: No Have you been sick,other than usual withdrawal symptoms: No Do you have a fever: No - Review of Systems Constitutional: Weight Stable EENT: reports: No Symptoms Reported Respiratory: reports: No Symptoms reported Cardiac: reports: No Symptoms Reported GI: reports: No Symptoms Reported : reports: No Symptoms Reported Musculoskeletal: reports: No Symptoms Reported Integumentary: reports: No Symptoms Reported Neuro: reports: No Symptoms reported Endocrine: reports: No Symptoms Reported Hematology: reports: No Symptoms Reported Psychiatric: reports: Judgement Intact, Mood/Affect Appropiate, Orientated x3 Other Systems: Reviewed and Negative Patient History - Patient Medical History Hx Anemia: No Hx Asthma: No Hx Chronic Obstructive Pulmonary Disease (COPD): No Hx Cancer: No Hx Cardiac Disorders: No Hx Congestive Heart Failure: No Hx Hypertension: No Hx Hypercholesterolemia: No Hx Pacemaker: No HX Cerebrovascular Accident: No Hx Seizures: No Hx Dementia: No Hx Diabetes: No Hx Gastrointestinal Disorders: Yes (Gastritis) Hx Liver Disease: No Hx Genitourinary Disorders: No Hx Sexually Transmitted Disorders: No Hx Renal Disease (ESRD): No Hx Thyroid Disease: No Hx Human Immunodeficiency Virus (HIV): No Hx Hepatitis C: No Hx Depression: Yes Hx Suicide Attempt: No Hx Bipolar Disorder: No Hx Schizophrenia: No - Patient Surgical History Past Surgical History: No Hx Neurologic Surgery: No Hx Cataract Extraction: No Hx Cardiac Surgery: No Hx Lung Surgery: No Hx Breast Surgery: No Hx Breast Biopsy: No Hx Abdominal Surgery: No Hx Appendectomy: No Hx Cholecystectomy: No Hx Genitourinary Surgery: No - PPD History Previous Implant?: Yes Documented Results: Negative w/o proof Implanted On Prior R Admission?: Yes Date: 11/22/16 PPD to be Administered?: No - Smoking Cessation Smoking history: Current every day smoker Have you smoked in the past 12 months: Yes Aproximately how many cigarettes per day: 20 Cigars Per Day: 0 Hx Chewing Tobacco Use: No Initiated information on smoking cessation: Yes 'Breaking Loose' booklet given: 03/14/17 - Substance & Tx. History Hx Alcohol Use: No Hx Substance Use: Yes Substance Use Type: Marijuana Hx Substance Use Treatment: Yes - Substances Abused Marijuana/Hashish Route: Smoking Frequency: Daily Amount used: OZ Age of first use: 13 Date of Last Use: 03/13/17 Family Disease History - Family Disease History Family Disease History: Diabetes: Father, Heart Disease: Father, Other: Mother ( kidney) Admission Physical Exam [facility] - Vital Signs Vital Signs: Vital Signs - 24 hr 03/14/17 12:11 Temperature 97.2 F L Pulse Rate 69 Respiratory 18 Rate Blood Pressure 135/77 - Physical General Appearance: Yes: No Apparent Distress, Appropriately Dressed, Thin HEENTM: Yes: Hearing grossly Normal, Normal ENT Inspection, Normocephalic, Normal Voice, Other (FLOTOR SCHEDULE TO SEE AN OPHTHELMOLOGIST) Respiratory: Yes: Chest Non-Tender, Lungs Clear, Normal Breath Sounds, No Respiratory Distress, No Accessory Muscle Use Neck: Yes: Supple, Trachea in good position Breast: Yes: Breasts Symetrical Cardiology: Yes: Regular Rhythm, Regular Rate, S1, S2 Abdominal: Yes: Non Tender, Soft Genitourinary: Yes: Within Normal Limits Musculoskeletal: Yes: full range of Motion, Gait Steady Extremities: Yes: Normal Inspection, Normal Range of Motion, Non-Tender Neurological: Yes: Fully Oriented, Alert, Motor Strength 5/5, Normal Mood/Affect , Normal Response Integumentary: Yes: Warm Lymphatic: Yes: Within Normal Limits - Diagnostic (1) Cannabis dependence, uncomplicated Current Visit: Yes Status: Chronic (2) GERD (gastroesophageal reflux disease) Current Visit: Yes Status: Chronic Qualifiers: Esophagitis presence: without esophagitis Qualified Code(s): K21.9 - Gastro-esophageal reflux disease without esophagitis (3) Nicotine dependence Current Visit: Yes Status: Acute Qualifiers: Nicotine product type: cigarettes Substance use status: in withdrawal Qualified Code(s): F17.213 - Nicotine dependence, cigarettes, with withdrawal (4) Methadone maintenance therapy patient Current Visit: Yes Status: Chronic Comment: 70 MG VERIFICATION PENDING Cleared for Admission S - Detox or Rehab [facility] Level of Care: Observation Bed Detox Regimen/Protocol: Not Applicable Claeared for Rehab Admission: Yes [facility] Breath Alcohol Content Breath Alcohol Content: 0.08 Urine Drug Screen - Results Drug Screen Negative: No Urine Drug Screen Results: THC-Marijuana, OPI-Opiates, BZO-Benzodiazepines, MTD- Methadone, TCA-Tricyclic Antidepress
[2017-03-14] MEDS ORDERED: NICOTINE 21 MG/24 HOURS TOPICAL PATCH TD PRN (20:05)
[2017-03-14] MEDS ORDERED: MAG HYDROX/AL HYDROX/SIMETH 30 ML UNIT-DOSE CUP PO PRN (20:05)
[2017-03-14] MEDS ORDERED: MAGNESIUM HYDROX 2400MG/30ML ORAL SUSPENSION 30 ML CUP PO PRN (20:05)
[2017-03-14] MEDS ORDERED: LOPERAMIDE HCL 2 MG CAPSULE PO PRN (20:05)
[2017-03-14] MEDS ORDERED: MAGNESIUM CITRATE 300 ML BOTTLE PO PRN (20:05)
[2017-03-14] MEDS ORDERED: guaiFENesin/D-METHORPHAN HB 10 ML UNIT-DOSE CUPS PO PRN (20:05)
[2017-03-14] MEDS ORDERED: MENTHOL/PHENOL 1 EACH UD MM PRN (20:05)
[2017-03-14] MEDS ORDERED: diphenhydrAMINE HCL 50 MG CAPSULE PO PRN (20:05)
[2017-03-14] MEDS ORDERED: ACETAMINOPHEN 325 MG TABLET (FP) PO PRN (20:05)
[2017-03-14] MEDS ORDERED: P-EPHED 60MG/TRIPROLIDI 2.5MG TABLET PO PRN (20:05)
[2017-03-14] MEDS: THIAMINE HCL 100 MG TABLET (FP) PO SCH (22:05)
[2017-03-14] MEDS: RANITIDINE HCL 150 MG TABLET (FP) PO SCH (22:05)
[2017-03-14] MEDS: NICOTINE POLACRILEX 4 MG GUM BC PRN (22:06)
[2017-03-15] MEDS: NICOTINE POLACRILEX 4 MG GUM BC PRN ×3 (06:13→20:04)
[2017-03-15] MEDS ORDERED: METHADONE HCL 40 MG DISPERSABLE TABLET PO SCH (07:15)
[2017-03-15] MEDS ORDERED: METHADONE HCL 10 MG TABLET ONE (07:28)
[2017-03-15] MEDS ORDERED: METHADONE HCL 40 MG DISPERSABLE TABLET ONE (07:28)
[2017-03-15] MEDS: METHADONE 40 MG, METHADONE 30 MG PO SCH (07:29)
[2017-03-15 10:02] LABS: MCH 30.6 pg (25.7-33.7); MEAN PLT VOLUME 9.1 fl (7.5-11.1)
[2017-03-15 10:04] LABS: MCHC 33.2 g/dl (32.0-35.9); MEAN CELL VOLUME 92.2 fl (80-96); PLATELET COUNT 300 K/MM3 (134-434); WHITE BLOOD COUNT 10.3 K/mm3 (4.0-10.0)
[2017-03-15] MEDS: RANITIDINE HCL 150 MG TABLET (FP) PO SCH ×2 (10:07→21:21)
[2017-03-15] MEDS: PRENATAL VITAMINS W/ FOLIC ACID TABLET (FP) PO SCH (10:07)
[2017-03-15] MEDS: CYCLOBENZAPRINE HCL 10 MG TABLET (FP) PO PRN (10:09)
[2017-03-15 10:11] LABS: URINE APPEARANCE CLEAR; URINE BILIRUBIN NEGATIVE (NEGATIVE); URINE BLOOD NEGATIVE (NEGATIVE); URINE COLOR LTYELLOW; URINE GLUCOSE (UA) NEGATIVE (NEGATIVE); URINE KETONE NEGATIVE (NEGATIVE); URINE LEUK ESTERASE NEGATIVE (NEGATIVE); URINE NITRITE NEGATIVE (NEGATIVE); URINE PROTEIN NEGATIVE (NEGATIVE); URINE UROBILINOGEN NEGATIVE E.U./dl (0.2-1.0)
[2017-03-15 12:14] LABS: ALBUMIN 4.3 g/dl (3.4-5.0); ANION GAP 9 (8-16); CO2 29 mmol/L (21-32)
[2017-03-15 12:18] LABS: ALK PHOS 93 U/L (45-117); BILIRUBIN,TOTAL 0.3 mg/dL (0.2-1.0); CALCIUM 10.1 mg/dL (8.5-10.1); COCKROFT - GAULT 120.55; CREATININE 0.9 mg/dL (0.7-1.3); GLUCOSE,RANDOM 77 mg/dL (74-106); SGOT/AST 51 U/L (15-37); SGPT/ALT 62 U/L (12-78); TOT PROT 7.8 g/dl (6.4-8.2)
[2017-03-15 12:41] LABS: HIV 1 & 2 AB NEGATIVE; HIV 1 AGp24 NEGATIVE
[2017-03-15 13:00] LABS: PLATELET ESTIMATE ADEQUATE (NORMAL)
--- NOTE | 2017-03-15 15:58 | HP ---
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 Physical/Sexual Abuse/Trauma History: denies Vital Signs: Vital Signs - 24 hr 03/14/17 03/15/17 03/15/17 20:40 00:48 03:30 Temperature 98.3 F Pulse Rate 70 Respiratory 18 18 18 Rate Blood Pressure 113/69 03/15/17 06:37 Temperature 97.8 F Pulse Rate 76 Respiratory 18 Rate Blood Pressure 116/73 Allergies/Adverse Reactions: Allergies Allergy/AdvReac Type Severity Reaction Status Date / Time peanut Allergy Severe Swelling Verified 03/14/17 18:12 Date of last physical exam: 03/14/17 Concur with the findings of this exam: Yes - Substance Abuse/Tx History Hx Alcohol Use: Yes (reports drinking since 13 yo,cognac,whiskey) Hx Substance Use: Yes (cocaine since his teens on/off,heroin since 20 yo (2 bandles a day0,) Substance Use Type: Alcohol, Cocaine, Heroin Hx Substance Use Treatment: Yes (never completed senior care inpatient rehab) - Admission Criteria Previous failed treatment: Yes Poor recovery environment: Yes Comorbidities: Yes Lacks judgement: Yes Mental Status Exam - Mental Status Exam Alert and Oriented to: Time, Place, Person Cognitive Function: Grossly Intact Patient Appearance: Well Groomed Mood: Sad Affect: Mood Congruent Patient Behavior: Cooperative Speech Pattern: Clear Voice Loudness: Normal Thought Process: Goal Oriented Thought Disorder: Not Present Hallucinations: Denies Suicidal Ideation: Denies Homicidal Ideation: Denies Insight/Judgement: Fair Sleep: Fair Appetite: Fair Muscle strength/Tone: Normal Gait/Station: Normal Psychiatric Findings - Problem List ([place] 1, 2,3) (1) Bipolar II disorder Current Visit: Yes Status: Suspected (2) Cannabis dependence, uncomplicated Current Visit: Yes Status: Chronic (3) Cocaine dependence, uncomplicated Current Visit: Yes Status: Chronic (4) GERD (gastroesophageal reflux disease) Current Visit: Yes Status: Chronic Qualifiers: Esophagitis presence: without esophagitis Qualified Code(s): K21.9 - Gastro-esophageal reflux disease without esophagitis (5) Methadone maintenance therapy patient Current Visit: Yes Status: Chronic Comment: 70 MG VERIFICATION PENDING (6) Nicotine dependence Current Visit: Yes Status: Chronic Qualifiers: Nicotine product type: cigarettes Substance use status: in withdrawal Qualified Code(s): F17.213 - Nicotine dependence, cigarettes, with withdrawal (7) Opioid dependence with withdrawal Current Visit: Yes Status: Chronic - Initial Treatment Plan Initial Treatment Plan: Will monitor progress.Consider mood stabilizers if needed.
[2017-03-15] MEDS: THIAMINE HCL 100 MG TABLET (FP) PO SCH (21:21)
[2017-03-15] MEDS: diphenhydrAMINE HCL 50 MG CAPSULE PO PRN (21:22)
[2017-03-16] MEDS: NICOTINE POLACRILEX 4 MG GUM BC PRN ×5 (00:20→21:12)
[2017-03-16] MEDS ORDERED: METHADONE HCL 40 MG DISPERSABLE TABLET ONE (03:27)
[2017-03-16] MEDS ORDERED: METHADONE HCL 10 MG TABLET ONE (03:27)
[2017-03-16] MEDS: METHADONE 40 MG, METHADONE 30 MG PO SCH (06:27)
[2017-03-16] MEDS: PRENATAL VITAMINS W/ FOLIC ACID TABLET (FP) PO SCH (09:43)
[2017-03-16] MEDS: RANITIDINE HCL 150 MG TABLET (FP) PO SCH ×2 (09:44→21:12)
[2017-03-16] MEDS: THIAMINE HCL 100 MG TABLET (FP) PO SCH (21:11)
[2017-03-16] MEDS: diphenhydrAMINE HCL 50 MG CAPSULE PO PRN (21:55)
[2017-03-17] MEDS: hydrOXYzine PAMOATE 50 MG CAPSULE (FP) PO PRN ×2 (00:19→17:23)
[2017-03-17] MEDS ORDERED: METHADONE HCL 40 MG DISPERSABLE TABLET ONE (03:51)
[2017-03-17] MEDS ORDERED: METHADONE HCL 10 MG TABLET ONE (03:51)
[2017-03-17] MEDS: METHADONE 40 MG, METHADONE 30 MG PO SCH (06:44)
[2017-03-17] MEDS: NICOTINE POLACRILEX 4 MG GUM BC PRN ×5 (06:46→21:22)
[2017-03-17] MEDS: PRENATAL VITAMINS W/ FOLIC ACID TABLET (FP) PO SCH (09:54)
[2017-03-17] MEDS: RANITIDINE HCL 150 MG TABLET (FP) PO SCH ×2 (11:30→21:21)
[2017-03-17] MEDS: THIAMINE HCL 100 MG TABLET (FP) PO SCH (21:21)
--- NOTE | 2017-03-17 23:15 | EKG ---
Test Reason : Blood Pressure : / mmHG Vent. Rate : 074 BPM Atrial Rate : 074 BPM P-R Int : 136 ms QRS Dur : 092 ms QT Int : 392 ms P-R-T Axes : 036 064 035 degrees QTc Int : 435 ms NORMAL SINUS RHYTHM MODERATE VOLTAGE CRITERIA FOR LVH, MAY BE NORMAL VARIANT EARLY REPOLARIZATION BORDERLINE ECG WHEN COMPARED WITH ECG OF 20-NOV-2016 19:28, NO SIGNIFICANT CHANGE WAS FOUND Confirmed by JERAMY FROST, BETSEY ([id number]) on 03/17/2017 11:14:59 PM Referred By: Edwardo Willingham Confirmed By:BETSEY DESHPANDE MD
[2017-03-18] MEDS: diphenhydrAMINE HCL 50 MG CAPSULE PO PRN ×2 (00:21→21:26)
[2017-03-18] MEDS ORDERED: METHADONE HCL 10 MG TABLET ONE (03:01)
[2017-03-18] MEDS ORDERED: METHADONE HCL 40 MG DISPERSABLE TABLET ONE (03:01)
[2017-03-18] MEDS: METHADONE 40 MG, METHADONE 30 MG PO SCH (06:11)
[2017-03-18] MEDS: NICOTINE POLACRILEX 4 MG GUM BC PRN ×4 (06:13→21:28)
[2017-03-18] MEDS: PRENATAL VITAMINS W/ FOLIC ACID TABLET (FP) PO SCH (09:48)
[2017-03-18] MEDS: RANITIDINE HCL 150 MG TABLET (FP) PO SCH ×2 (09:48→21:26)
[2017-03-18] MEDS: THIAMINE HCL 100 MG TABLET (FP) PO SCH (21:26)
[2017-03-19] MEDS ORDERED: METHADONE HCL 10 MG TABLET ONE (02:35)
[2017-03-19] MEDS ORDERED: METHADONE HCL 40 MG DISPERSABLE TABLET ONE (02:35)
[2017-03-19] MEDS: METHADONE 40 MG, METHADONE 30 MG PO SCH (06:25)
[2017-03-19] MEDS: NICOTINE POLACRILEX 4 MG GUM BC PRN ×2 (06:26→08:52)
[2017-03-19] MEDS: PRENATAL VITAMINS W/ FOLIC ACID TABLET (FP) PO SCH (09:54)
[2017-03-19] MEDS: RANITIDINE HCL 150 MG TABLET (FP) PO SCH ×2 (09:54→21:13)
--- NOTE | 2017-03-19 12:16 | PN ---
[facility] Progress Note (SOAP) Subjective: bump in genital area after shaving Objective: 03/19/17 12:13 Vital Signs Temperature 98.4 F 03/19/17 06:52 Pulse Rate 99 H 03/19/17 06:52 Respiratory Rate 18 03/19/17 06:52 Blood Pressure 138/71 03/19/17 06:52 O2 Sat by Pulse Oximetry (%) Laboratory Tests 03/14/17 03/15/17 03/15/17 08:00 06:00 06:00 WBC 10.3 H D RBC 4.59 Hgb 14.1 Hct 42.3 MCV 92.2 MCHC 33.2 RDW 13.0 Plt Count 300 MPV 9.1 Neutrophils % 50.0 Lymphocytes % 44.0 H Monocytes % 4.0 Eosinophils % 1.0 Basophils % 1.0 Differential Comment Manual diff done Platelet Estimate Adequate Sodium 141 Potassium 4.4 Chloride 103 Carbon Dioxide 29 Anion Gap 9 BUN 10 Creatinine 0.9 Creat Clearance w eGFR > 60 Random Glucose 77 Calcium 10.1 Total Bilirubin 0.3 D AST 51 H D ALT 62 D Alkaline Phosphatase 93 Total Protein 7.8 Albumin 4.3 Urine Color Ltyellow Urine Appearance Clear Urine pH 7.0 Ur Specific [place] 1.015 Urine Protein Negative Urine Glucose (UA) Negative Urine Ketones Negative Urine Blood Negative Urine Nitrite Negative Urine Bilirubin Negative Urine Urobilinogen Negative Ur Leukocyte Esterase Negative RPR Titer HIV 1&2 Antibody Screen HIV P24 Antigen 03/15/17 03/15/17 06:00 06:00 WBC RBC Hgb Hct MCV MCHC RDW Plt Count MPV Neutrophils % Lymphocytes % Monocytes % Eosinophils % Basophils % Differential Comment Platelet Estimate Sodium Potassium Chloride Carbon Dioxide Anion Gap BUN Creatinine Creat Clearance w eGFR Random Glucose Calcium Total Bilirubin AST ALT Alkaline Phosphatase Total Protein Albumin Urine Color Urine Appearance Urine pH Ur Specific [place] Urine Protein Urine Glucose (UA) Urine Ketones Urine Blood Urine Nitrite Urine Bilirubin Urine Urobilinogen Ur Leukocyte Esterase RPR Titer Nonreactive HIV 1&2 Antibody Screen Negative HIV P24 Antigen Negative pt aox3 in nad ambulating genital area -shaved with papule left groin Assessment: 03/19/17 12:15 shaving bump /folliculitis Plan: doxycycline 100mg bid bacitracin oint bid
[2017-03-19] MEDS: NICOTINE POLACRILEX 2 MG GUM BUC PRN ×3 (14:36→21:15)
--- NOTE | 2017-03-19 17:57 | PN ---
B[facility] Progress Note Note: c/o left lateral 5th finger cut when cleaning the garbage cane superficial skin abrasion noted no redness no bleed. washed with soap and water , pad dry tetanus im x 1 unable to recall last dosage continue rehab
[2017-03-19] MEDS: DOXYCYCLINE HYCLATE 100 MG TABLET PO SCH (18:30)
[2017-03-19] MEDS: THIAMINE HCL 100 MG TABLET (FP) PO SCH (21:13)
[2017-03-19] MEDS: BACITRACIN 0.9 GM PACKET TP SCH (21:13)
[2017-03-19] MEDS: diphenhydrAMINE HCL 50 MG CAPSULE PO PRN (21:13)
[2017-03-19] MEDS ORDERED: TETANUS AND DIPHTHERIA TOXOID 0.5 ML DISP.SYRIN IM ONE (22:00)
[2017-03-20] MEDS ORDERED: METHADONE HCL 40 MG DISPERSABLE TABLET ONE (03:12)
[2017-03-20] MEDS ORDERED: METHADONE HCL 10 MG TABLET ONE (03:12)
[2017-03-20] MEDS: METHADONE 40 MG, METHADONE 30 MG PO SCH (06:13)
[2017-03-20] MEDS: NICOTINE POLACRILEX 2 MG GUM BUC PRN ×5 (06:13→21:13)
[2017-03-20] MEDS: BACITRACIN 0.9 GM PACKET TP SCH ×2 (09:48→21:13)
[2017-03-20] MEDS: PRENATAL VITAMINS W/ FOLIC ACID TABLET (FP) PO SCH (09:48)
[2017-03-20] MEDS: RANITIDINE HCL 150 MG TABLET (FP) PO SCH ×2 (09:48→21:12)
[2017-03-20] MEDS: DOXYCYCLINE HYCLATE 100 MG TABLET PO SCH ×2 (09:48→17:26)
[2017-03-20] MEDS: THIAMINE HCL 100 MG TABLET (FP) PO SCH (21:13)
[2017-03-20] MEDS: diphenhydrAMINE HCL 50 MG CAPSULE PO PRN (21:13)
[2017-03-21] MEDS ORDERED: METHADONE HCL 10 MG TABLET ONE (03:09)
[2017-03-21] MEDS ORDERED: METHADONE HCL 40 MG DISPERSABLE TABLET ONE (03:10)
[2017-03-21] MEDS: METHADONE 40 MG, METHADONE 30 MG PO SCH (06:16)
[2017-03-21] MEDS: NICOTINE POLACRILEX 2 MG GUM BUC PRN ×4 (06:16→21:17)
[2017-03-21] MEDS: RANITIDINE HCL 150 MG TABLET (FP) PO SCH ×2 (09:43→21:16)
[2017-03-21] MEDS: BACITRACIN 0.9 GM PACKET TP SCH ×2 (09:43→21:16)
[2017-03-21] MEDS: PRENATAL VITAMINS W/ FOLIC ACID TABLET (FP) PO SCH (09:43)
[2017-03-21] MEDS: DOXYCYCLINE HYCLATE 100 MG TABLET PO SCH ×2 (09:43→17:46)
[2017-03-21] MEDS: diphenhydrAMINE HCL 50 MG CAPSULE PO PRN (21:16)
[2017-03-21] MEDS: THIAMINE HCL 100 MG TABLET (FP) PO SCH (21:16)
[2017-03-22] MEDS ORDERED: METHADONE HCL 10 MG TABLET ONE ×2 (03:17)
[2017-03-22] MEDS ORDERED: METHADONE HCL 40 MG DISPERSABLE TABLET ONE ×2 (03:18)
[2017-03-22] MEDS: METHADONE 40 MG, METHADONE 30 MG PO SCH (06:11)
[2017-03-22] MEDS: NICOTINE POLACRILEX 2 MG GUM BUC PRN ×4 (06:12→21:19)
[2017-03-22] MEDS: PRENATAL VITAMINS W/ FOLIC ACID TABLET (FP) PO SCH (09:45)
[2017-03-22] MEDS: DOXYCYCLINE HYCLATE 100 MG TABLET PO SCH ×2 (09:46→17:13)
[2017-03-22] MEDS: BACITRACIN 0.9 GM PACKET TP SCH ×2 (09:46→21:19)
[2017-03-22] MEDS: RANITIDINE HCL 150 MG TABLET (FP) PO SCH ×2 (09:46→21:18)
[2017-03-22] MEDS: THIAMINE HCL 100 MG TABLET (FP) PO SCH (21:18)
[2017-03-22] MEDS: diphenhydrAMINE HCL 50 MG CAPSULE PO PRN (21:18)
[2017-03-23] MEDS ORDERED: METHADONE HCL 10 MG TABLET ONE (04:11)
[2017-03-23] MEDS ORDERED: METHADONE HCL 40 MG DISPERSABLE TABLET ONE (04:11)
[2017-03-23] MEDS: METHADONE 40 MG, METHADONE 30 MG PO SCH (05:59)
[2017-03-23] MEDS ORDERED: METHADONE HCL 10 MG TABLET PO SCH (06:00)
[2017-03-23] MEDS: NICOTINE POLACRILEX 2 MG GUM BUC PRN ×3 (06:01→21:21)
[2017-03-23] MEDS: RANITIDINE HCL 150 MG TABLET (FP) PO SCH ×2 (09:40→21:19)
[2017-03-23] MEDS: PRENATAL VITAMINS W/ FOLIC ACID TABLET (FP) PO SCH (09:40)
[2017-03-23] MEDS: DOXYCYCLINE HYCLATE 100 MG TABLET PO SCH ×2 (09:40→17:06)
[2017-03-23] MEDS: BACITRACIN 0.9 GM PACKET TP SCH ×2 (09:40→21:20)
[2017-03-23] MEDS: THIAMINE HCL 100 MG TABLET (FP) PO SCH (21:19)
[2017-03-23] MEDS: diphenhydrAMINE HCL 50 MG CAPSULE PO PRN (21:20)
[2017-03-24] MEDS ORDERED: METHADONE HCL 10 MG TABLET ONE (03:37)
[2017-03-24] MEDS ORDERED: METHADONE HCL 40 MG DISPERSABLE TABLET ONE (03:38)
[2017-03-24] MEDS: METHADONE 40 MG, METHADONE 30 MG PO SCH (05:58)
[2017-03-24] MEDS: NICOTINE POLACRILEX 2 MG GUM BUC PRN ×4 (05:59→21:19)
[2017-03-24] MEDS: DOXYCYCLINE HYCLATE 100 MG TABLET PO SCH ×2 (09:50→17:22)
[2017-03-24] MEDS: PRENATAL VITAMINS W/ FOLIC ACID TABLET (FP) PO SCH (09:50)
[2017-03-24] MEDS: BACITRACIN 0.9 GM PACKET TP SCH ×2 (09:51→21:19)
[2017-03-24] MEDS: RANITIDINE HCL 150 MG TABLET (FP) PO SCH ×2 (09:51→21:18)
[2017-03-24] MEDS: THIAMINE HCL 100 MG TABLET (FP) PO SCH (21:18)
[2017-03-24] MEDS: diphenhydrAMINE HCL 50 MG CAPSULE PO PRN (21:19)
[2017-03-25] MEDS ORDERED: METHADONE HCL 10 MG TABLET ONE (03:09)
[2017-03-25] MEDS ORDERED: METHADONE HCL 40 MG DISPERSABLE TABLET ONE (03:10)
[2017-03-25] MEDS: METHADONE 40 MG, METHADONE 30 MG PO SCH (05:53)
[2017-03-25] MEDS: NICOTINE POLACRILEX 2 MG GUM BUC PRN ×6 (05:55→21:16)
[2017-03-25] MEDS: BACITRACIN 0.9 GM PACKET TP SCH ×2 (09:52→21:15)
[2017-03-25] MEDS: PRENATAL VITAMINS W/ FOLIC ACID TABLET (FP) PO SCH (09:52)
[2017-03-25] MEDS: RANITIDINE HCL 150 MG TABLET (FP) PO SCH ×2 (09:52→21:15)
[2017-03-25] MEDS: DOXYCYCLINE HYCLATE 100 MG TABLET PO SCH ×2 (09:52→17:49)
[2017-03-25] MEDS: THIAMINE HCL 100 MG TABLET (FP) PO SCH (21:15)
[2017-03-25] MEDS: diphenhydrAMINE HCL 50 MG CAPSULE PO PRN (21:15)
[2017-03-26] MEDS ORDERED: METHADONE HCL 10 MG TABLET ONE (03:25)
[2017-03-26] MEDS ORDERED: METHADONE HCL 40 MG DISPERSABLE TABLET ONE (03:25)
[2017-03-26] MEDS: NICOTINE POLACRILEX 2 MG GUM BUC PRN ×5 (05:54→21:15)
[2017-03-26] MEDS: METHADONE 40 MG, METHADONE 30 MG PO SCH (05:54)
[2017-03-26] MEDS: RANITIDINE HCL 150 MG TABLET (FP) PO SCH ×2 (09:41→21:14)
[2017-03-26] MEDS: DOXYCYCLINE HYCLATE 100 MG TABLET PO SCH ×2 (09:41→17:10)
[2017-03-26] MEDS: PRENATAL VITAMINS W/ FOLIC ACID TABLET (FP) PO SCH (09:41)
[2017-03-26] MEDS: BACITRACIN 0.9 GM PACKET TP SCH ×2 (09:42→21:14)
[2017-03-26] MEDS: THIAMINE HCL 100 MG TABLET (FP) PO SCH (21:14)
[2017-03-26] MEDS: diphenhydrAMINE HCL 50 MG CAPSULE PO PRN (21:15)
[2017-03-27] MEDS ORDERED: METHADONE HCL 10 MG TABLET ONE (03:13)
[2017-03-27] MEDS ORDERED: METHADONE HCL 40 MG DISPERSABLE TABLET ONE (03:13)
[2017-03-27] MEDS: METHADONE 40 MG, METHADONE 30 MG PO SCH (06:12)
[2017-03-27] MEDS: NICOTINE POLACRILEX 2 MG GUM BUC PRN ×5 (06:13→21:13)
[2017-03-27] MEDS: PRENATAL VITAMINS W/ FOLIC ACID TABLET (FP) PO SCH (10:09)
[2017-03-27] MEDS: BACITRACIN 0.9 GM PACKET TP SCH ×2 (10:09→21:12)
[2017-03-27] MEDS: RANITIDINE HCL 150 MG TABLET (FP) PO SCH ×2 (10:09→21:12)
[2017-03-27] MEDS: THIAMINE HCL 100 MG TABLET (FP) PO SCH (21:12)
[2017-03-27] MEDS: CYCLOBENZAPRINE HCL 10 MG TABLET (FP) PO PRN (21:12)
[2017-03-27] MEDS: diphenhydrAMINE HCL 50 MG CAPSULE PO PRN (21:12)
[2017-03-28] MEDS ORDERED: METHADONE HCL 10 MG TABLET ONE (03:12)
[2017-03-28] MEDS ORDERED: METHADONE HCL 40 MG DISPERSABLE TABLET ONE (03:13)
[2017-03-28] MEDS: METHADONE 40 MG, METHADONE 30 MG PO SCH (06:14)
[2017-03-28] MEDS: NICOTINE POLACRILEX 2 MG GUM BUC PRN ×6 (06:15→22:14)
[2017-03-28] MEDS: PRENATAL VITAMINS W/ FOLIC ACID TABLET (FP) PO SCH (10:06)
[2017-03-28] MEDS: RANITIDINE HCL 150 MG TABLET (FP) PO SCH ×2 (10:06→21:20)
[2017-03-28] MEDS: BACITRACIN 0.9 GM PACKET TP SCH ×2 (10:06→21:20)
[2017-03-28] MEDS: CYCLOBENZAPRINE HCL 10 MG TABLET (FP) PO PRN (10:07)
[2017-03-28] MEDS: diphenhydrAMINE HCL 50 MG CAPSULE PO PRN (21:20)
[2017-03-28] MEDS: THIAMINE HCL 100 MG TABLET (FP) PO SCH (21:20)
[2017-03-29] MEDS ORDERED: METHADONE HCL 40 MG DISPERSABLE TABLET ONE (03:38)
[2017-03-29] MEDS ORDERED: METHADONE HCL 10 MG TABLET ONE (03:38)
[2017-03-29] MEDS: METHADONE 40 MG, METHADONE 30 MG PO SCH (05:51)
[2017-03-29] MEDS: NICOTINE POLACRILEX 2 MG GUM BUC PRN ×2 (05:53→08:28)
[2017-03-29 06:52] VITALS: BP 103/59; PULSE 79; TEMP 98
--- NOTE | 2017-03-29 09:49 | PN ---
Psychiatric Progress Note Vital Signs: Vital Signs Period Temp Pulse Resp BP Sys/Albert Pulse Ox Last 24 Hr 98.0 F 79 18-18 103/59 Date of Session: 03/29/17 Chief Complaint:: discharge visit HPI: Patient has addressed cocaine, opioid, cannabis, nicotine dependence comorbid Bipolar II disorder. ROS: WNL Current Medications: Active Medications Generic Name Dose Route Start Last Admin Trade Name Freq PRN Reason Stop Dose Admin Acetaminophen 650 mg 03/14/17 20:05 03/16/17 21:53 Tylenol - PO 650 mg Q4H PRN Administration PAIN Al Hydroxide/Mg Hydroxide 30 ml 03/14/17 20:05 03/16/17 21:54 Mylanta Oral Suspension - PO 30 ml Q6H PRN Administration DYSPEPSIA Bacitracin 0.9 gm 03/19/17 22:00 03/28/17 21:20 Bacitracin - TP Not Given BID VALENTINA Cyclobenzaprine HCl 10 mg 03/14/17 20:08 03/28/17 10:07 Flexeril - PO 10 mg TID PRN Administration MUSCLE SPASMS Diphenhydramine HCl 100 mg 03/15/17 16:13 03/28/17 21:20 Benadryl - PO 100 mg HS PRN Administration INSOMNIA Eucalyptus/Menthol/Phenol/Sorbitol 1 each 03/14/17 20:05 03/28/17 22:14 Cepastat Lozenge - MM 1 each Q4H PRN Administration SORE THROAT Guaifenesin 10 ml 03/14/17 20:05 Robitussin Dm - PO Q6H PRN COUGH Hydroxyzine Pamoate 50 mg 03/17/17 00:14 03/17/17 17:23 Vistaril - PO 50 mg Q6H PRN Administration FOR ITCHING Loperamide HCl 4 mg 03/14/17 20:05 Imodium - PO Q6H PRN DIARRHEA Magnesium Citrate 300 ml 03/14/17 20:05 Citroma - PO Q48H PRN CONSTIPATION Magnesium Hydroxide 30 ml 03/14/17 20:05 03/15/17 13:51 Milk Of Magnesia - PO 30 ml DAILY PRN Administration CONSTIPATION Methadone HCl 40 mg/ Methadone 70 mg 03/23/17 06:00 03/29/17 05:51 HCl 30 mg PO 70 mg DAILY@0600 VALENTINA Administration Nicotine 21 mg 03/14/17 20:05 Nicoderm Patch - TD DAILY PRN WITHDRAWAL(CONT SUBST) Nicotine Polacrilex 2 mg 03/19/17 11:51 03/29/17 08:28 Nicorette Gum - BUC 2 mg Q2H PRN Administration NICOTINE REPLACEMENT RX Multivit/Folic Acid/Iron 1 tab 03/15/17 10:00 03/28/17 10:06 Vitamins (Sjr) - PO 1 tab DAILY VALENTINA Administration Pseudoephedrine/Triprolidine 1 combo 03/14/17 20:05 Actifed - PO TID PRN NASAL CONGESTION Ranitidine HCl 150 mg 03/14/17 22:00 03/28/17 21:20 Zantac - PO 150 mg BID VALENTINA Administration Thiamine HCl 100 mg 03/14/17 22:00 03/28/17 21:20 Vitamin B1 - PO 100 mg HS VALENTINA Administration Current Side Effect: No Lab tests ordered: No Lab tests reviewed: Yes Provider note:: Patient has completed today his treatment and met his goals, will continue to address his issues at [facility] next level of care. Patient reports though this treatment he learned importance of changing attitudes/behavior for the utilization of supports to prevent relapses. Patient was encouraged to use alternative ways to cope with stressors, patient is stable for discharge. Total face to face time:: 35 Mental Status Exam - Mental Status Exam Alert and Oriented to: Time, Place, Person Cognitive Function: Good Patient Appearance: Well Groomed Mood: Hopeful Affect: Appropriate, Mood Congruent Patient Behavior: Appropriate, Cooperative Speech Pattern: Clear, Appropriate Voice Loudness: Normal Thought Process: Intact, Goal Oriented Thought Disorder: Not Present Hallucinations: Denies Suicidal Ideation: Denies Homicidal Ideation: Denies Insight/Judgement: Fair Sleep: Fair Appetite: Good Muscle strength/Tone: Normal Gait/Station: Normal Psychiatric Treatment Plan - Problem List (1) Cannabis dependence, uncomplicated Current Visit: Yes (2) Cocaine dependence, uncomplicated Current Visit: Yes (3) Methadone maintenance therapy patient Current Visit: Yes Comment: 70 MG VERIFICATION PENDING (4) Nicotine dependence Current Visit: Yes Qualifiers: Nicotine product type: cigarettes Substance use status: in withdrawal Qualified Code(s): F17.213 - Nicotine dependence, cigarettes, with withdrawal (5) Opioid dependence Current Visit: Yes
[2017-03-29] MEDS: PRENATAL VITAMINS W/ FOLIC ACID TABLET (FP) PO SCH (09:53)
[2017-03-29] MEDS: RANITIDINE HCL 150 MG TABLET (FP) PO SCH (09:53)
[2017-03-29] MEDS: CYCLOBENZAPRINE HCL 10 MG TABLET (FP) PO PRN (09:53)
[2017-03-29] MEDS: BACITRACIN 0.9 GM PACKET TP SCH (09:54)
== END 2017-03-29 10:45 | disposition home or self-care (01) | DRG 772 ==
LOC: YASAS 10:50 → Y5N 18:04
PROVIDERS: ADMIT Psychiatry & Neurology Psychiatry; ATTEND Psychiatry & Neurology Psychiatry
PROC: HZ42ZZZ Group Counseling for Substance Abuse Treatment, Cognitive-Behavioral (ICD-10-PCS; principal; 2017-03-14)
DX: F11.20 Opioid dependence, uncomplicated (principal); F14.20 Cocaine dependence, uncomplicated; F12.20 Cannabis dependence, uncomplicated; F17.213 Nicotine dependence, cigarettes, with withdrawal; F31.81 Bipolar II disorder; K21.9 Gastro-esophageal reflux disease without esophagitis; L73.8 Other specified follicular disorders; S60.417A Abrasion of left little finger, initial encounter; W45.8XXA Other foreign body or object entering through skin, initial encounter; Y93.E9 Activity, other interior property and clothing maintenance; Y92.239 Unspecified place in hospital as the place of occurrence of the external cause
CPT/HCPCS: 36415; 80053; 81003; 85027; 86593; 87389; 93005; 93010

== ENCOUNTER 2018-06-18 18:14 | Inpatient (IN) | payer OTHER ==
[2018-06-18 18:34] VITALS: BMI 23.6
--- NOTE | 2018-06-18 22:50 | HP ---
COWS - Scale Resting Pulse: 0= [place] 80 or Below Sweatin=Flushed/Facial Moisture Restless Observation: 0= Sits Still Pupil Size: 1= Pupils >than Normal Bone or Joint Aches: 4=Acute Joint/Muscle Pain Runny Nose/ Eye Tearin= Runny Nose/Eyes GI Upset > 30mins: 2= Nausea/Diarrhea (diarrhea x 3) Tremor Observation: 0= None Yawning Observation: 0= None Anxiety or Irritability: 4=Extreme Anxiety Goose Flesh Skin: 0=Smooth Skin COWS Score: 15 Admission ROS [facility] Chief Complaint: Heroin withdrawal symptoms Allergies/Adverse Reactions: Allergies Allergy/AdvReac Type Severity Reaction Status Date / Time No Known Allergies Allergy Verified 06/18/18 20:39 History of Present Illness: 32 years old male with over 10 years history of heroin dependence is seeking admission to detox. Patient was last detoxed at [facility]. He reports 2 years of sobriety. He has medical medical history of anxiety, GERD and depression. He denies suicide attempt and suicidal ideation at this time. Exam Limitations: No Limitations - Ebola screening Have you traveled outside of the country in the last 21 days: No Have you had contact with anyone from an Ebola affected area: No Have you been sick,other than usual withdrawal symptoms: No Do you have a fever: No - Review of Systems Constitutional: Chills, Malaise, Night Sweats, Weakness, Unexplained wgt Loss ( 10-15 pounds) EENT: reports: Sinus Pressure Respiratory: reports: No Symptoms reported Cardiac: reports: No Symptoms Reported GI: reports: Diarrhea (x 3), Nausea, Poor Appetite, Poor Fluid Intake, Abdominal cramping : reports: No Symptoms Reported Musculoskeletal: reports: Back Pain, Muscle Pain, Muscle Weakness Integumentary: reports: Dryness Neuro: reports: Headache, Tremors Endocrine: reports: No Symptoms Reported Hematology: reports: No Symptoms Reported Psychiatric: reports: Orientated x3, Anxious, Depressed Other Systems: Reviewed and Negative Patient History - Patient Medical History Hx Anemia: No Hx Asthma: No Hx Chronic Obstructive Pulmonary Disease (COPD): No Hx Cancer: No Hx Cardiac Disorders: No Hx Congestive Heart Failure: No Hx Hypertension: No Hx Hypercholesterolemia: No Hx Pacemaker: No HX Cerebrovascular Accident: No Hx Seizures: No Hx Dementia: No Hx Diabetes: No Hx Gastrointestinal Disorders: No Hx Liver Disease: No Hx Genitourinary Disorders: No Hx Sexually Transmitted Disorders: No Hx Renal Disease (ESRD): No Hx Thyroid Disease: No Hx Human Immunodeficiency Virus (HIV): No Hx Hepatitis C: No Hx Depression: Yes (Not on medication) Hx Suicide Attempt: No (Denies suicide attempt and suicidal ideation at this time) Hx Bipolar Disorder: No Hx Schizophrenia: No Other Medical History: ANXIETY - Not on medication - Patient Surgical History Past Surgical History: No Hx Neurologic Surgery: No Hx Cataract Extraction: No Hx Cardiac Surgery: No Hx Lung Surgery: No Hx Abdominal Surgery: No Hx Appendectomy: No Hx Cholecystectomy: No Hx Genitourinary Surgery: No Hx Orthopedic Surgery: No Anesthesia Reaction: No - PPD History Previous Implant?: Yes Documented Results: Negative w/proof Date: 11/22/16 PPD to be Administered?: Yes - Reproductive History Patient is a Female of Child Bearing Age (11 -55 yrs old): No (Male) - Smoking Cessation Smoking history: Current every day smoker Have you smoked in the past 12 months: Yes Aproximately how many cigarettes per day: 10 Cigars Per Day: 0 Hx Chewing Tobacco Use: No Initiated information on smoking cessation: Yes 'Breaking Loose' booklet given: 06/18/18 - Substance & Tx. History Hx Alcohol Use: No Hx Substance Use: Yes Substance Use Type: Heroin Hx Substance Use Treatment: Yes ([facility]) - Substances Abused Heroin Route: Inhalation Frequency: Daily Amount used: 5 bags Age of first use: 19 Date of Last Use: 06/18/18 Family Disease History - Family Disease History Family Disease History: Diabetes: Father, Heart Disease: Father, Other: Mother ( kidney) Admission Physical Exam [facility] - Vital Signs Vital Signs: Vital Signs - 24 hr 06/18/18 18:24 Temperature 97 F L Pulse Rate 70 Respiratory 18 Rate Blood Pressure 129/70 - Physical General Appearance: Yes: Moderate Distress, Tremorous, Irritable, Sweating, Anxious HEENTM: Yes: EOMI, Normal ENT Inspection, Normocephalic, Normal Voice, OSWALD Respiratory: Yes: Lungs Clear, Normal Breath Sounds, No Respiratory Distress Neck: Yes: Supple Breast: Yes: Breast Exam Deferred Cardiology: Yes: Regular Rhythm, Regular Rate Abdominal: Yes: Normal Bowel Sounds, Soft Genitourinary: Yes: Within Normal Limits Neurological: Yes: Fully Oriented, Alert, Normal Mood/Affect Integumentary: Yes: Normal Color, Warm Lymphatic: Yes: Within Normal Limits - Diagnostic (1) Anxiety Current Visit: Yes Status: Chronic (2) Depression Current Visit: Yes Status: Chronic (3) GERD (gastroesophageal reflux disease) Current Visit: Yes Status: Chronic Qualifiers: Esophagitis presence: without esophagitis Qualified Code(s): K21.9 - Gastro -esophageal reflux disease without esophagitis (4) Nicotine dependence Current Visit: Yes Status: Chronic Qualifiers: Nicotine product type: cigarettes Substance use status: in withdrawal Qualified Code(s): F17.213 - Nicotine dependence, cigarettes, with withdrawal (5) Opioid dependence with withdrawal Current Visit: Yes Status: Chronic Cleared for Admission S - Detox or Rehab [facility] Level of Care: Medically Managed Detox Regimen/Protocol: Methadone [facility] Breath Alcohol Content Breath Alcohol Content: 0 Urine Drug Screen - Results Drug Screen Negative: No Urine Drug Screen Results: OPI-Opiates, OXY-Oxycodone
[2018-06-18] MEDS ORDERED: METHADONE HCL 10 MG TABLET (FOR DETOX USE ONLY) PO ONE ×2 (23:00→23:02)
[2018-06-18] MEDS ORDERED: MAGNESIUM HYDROX 2400MG/30ML ORAL SUSPENSION 30 ML CUP PO PRN (23:02)
[2018-06-18] MEDS ORDERED: IBUPROFEN 400 MG TABLET (FP) PO PRN (23:02)
[2018-06-18] MEDS ORDERED: ACETAMINOPHEN 325 MG TABLET (FP) PO PRN (23:02)
[2018-06-18] MEDS ORDERED: MAG HYDROX/AL HYDROX/SIMETH 30 ML UNIT-DOSE CUP PO PRN (23:02)
[2018-06-18] MEDS ORDERED: guaiFENesin/D-METHORPHAN HB 10 ML UNIT-DOSE CUPS PO PRN (23:02)
[2018-06-18] MEDS ORDERED: MAGNESIUM CITRATE 300 ML BOTTLE PO PRN (23:02)
[2018-06-18] MEDS ORDERED: MENTHOL/PHENOL 1 EACH UD MM PRN (23:02)
[2018-06-18] MEDS ORDERED: P-EPHED 60MG/TRIPROLIDI 2.5MG TABLET PO PRN (23:02)
[2018-06-18] MEDS ORDERED: LOPERAMIDE HCL 2 MG CAPSULE PO PRN (23:02)
[2018-06-18] MEDS: diazePAM 5 MG TABLET PO PRN (23:36)
[2018-06-19] MEDS ORDERED: METHADONE HCL 10 MG TABLET (FOR DETOX USE ONLY) PO ONE (10:00)
[2018-06-19 10:13] LABS: HEMATOCRIT 39.1 % (35.4-49); HEMOGLOBIN 12.9 GM/dL (11.7-16.9); MCH 28.9 pg (25.7-33.7); MCHC 32.9 g/dl (32.0-35.9); MEAN CELL VOLUME 88.1 fl (80-96); PLATELET COUNT 290 K/MM3 (134-434); RBC 4.44 M/mm3 (4.00-5.60); RDW 13.4 % (11.9-15.9); WHITE BLOOD COUNT 7.5 K/mm3 (4.0-10.0)
[2018-06-19] MEDS: PRENATAL VITAMINS W/ FOLIC ACID TABLET (FP) PO SCH (10:31)
[2018-06-19] MEDS: diazePAM 5 MG TABLET PO PRN ×3 (10:31→22:28)
[2018-06-19] MEDS: NICOTINE 14 MG/24 HOURS TOPICAL PATCH TD SCH (10:32)
--- NOTE | 2018-06-19 11:56 | EKG ---
Test Reason : Blood Pressure : / mmHG Vent. Rate : 065 BPM Atrial Rate : 065 BPM P-R Int : 124 ms QRS Dur : 096 ms QT Int : 386 ms P-R-T Axes : 014 067 036 degrees QTc Int : 401 ms NORMAL SINUS RHYTHM EARLY REPOLARIZATION NORMAL ECG WHEN COMPARED WITH ECG OF 14-MAR-2017 22:38, NO SIGNIFICANT CHANGE WAS FOUND Confirmed by JUS CAMEJO MD ([id number]) on 06/19/2018 11:56:08 AM Referred By: Confirmed By:JUS CAMEJO MD
[2018-06-19 12:26] LABS: CHLORIDE 106 mmol/L (98-107); POTASSIUM 4.5 mmol/L (3.5-5.1); SODIUM 142 mmol/L (136-145)
--- NOTE | 2018-06-19 12:33 | CONSULT ---
[facility] Psychiatric Consult - Data Date of interview: 06/19/18 Admission source: [facility] Identifying data: Patient is a 32 year old male, , father of one, domiciled, and financially supported by family. This is one of multiple admissions for patient. Pt. admitted to for opiate dependence. Substance Abuse History: - Smoking Cessation. Smoking history: Current every day smoker. Have you smoked in the past 12 months: Yes. Aproximately how many cigarettes per day: 10. Cigars Per Day: 0. Hx Chewing Tobacco Use: No. Initiated information on smoking cessation: Yes. 'Breaking Loose' booklet given : 06/18/18. - Substance & Tx. History. Hx Alcohol Use: No. Hx Substance Use: Yes. Substance Use Type: Heroin. Hx Substance Use Treatment: Yes ([facility]). - Substances Abused. Heroin. Route: Inhalation. Frequency: Daily. Amount used: 5 bags. Age of first use: 19. Date of Last Use: 06/18/18 Medical History: denies. Psychiatric History: Patient's first psychiatric contact was at 16 years of age while in detox at [facility]. Pt. states he was retained on a psychiatric unit for fourteen days. He was diagnosed with Bipolar disorder and prescribed risperdal. Following discharge, pt. continued follow up care at [facility] outpatient clinic in which he was reevaulated and told by a psychiatrist that he was misdiagnose and did not have a diagnoses of bipolar disorder. Eventually patient discontinued outpatient psychiatric care and reports being mentally stable. Pt. is currently attending the [facility] in [facility] and as per the requirement of the program see's a psychiatrist once a month. Pt. is not taking psychotropic medications. Physical/Sexual Abuse/Trauma History: denies. Mental Status Exam - Mental Status Exam Alert and Oriented to: Time, Place, Person Cognitive Function: Good Patient Appearance: Well Groomed Mood: Hopeful Affect: Appropriate Patient Behavior: Appropriate, Cooperative Speech Pattern: Clear, Appropriate Voice Loudness: Normal Thought Process: Intact, Goal Oriented Thought Disorder: Not Present Hallucinations: Denies Suicidal Ideation: Denies Homicidal Ideation: Denies Insight/Judgement: Poor Sleep: Fair Appetite: Good Muscle strength/Tone: Normal Gait/Station: Normal Psychiatric Findings - Problem List ([place] 1, 2,3) (1) Opioid dependence with withdrawal Current Visit: Yes Status: Acute (2) Nicotine dependence Current Visit: Yes Status: Chronic Qualifiers: Nicotine product type: cigarettes Substance use status: in withdrawal Qualified Code(s): F17.213 - Nicotine dependence, cigarettes, with withdrawal - Initial Treatment Plan Initial Treatment Plan: Psychoeducation provided. Detoxification in progress. Observation.
[2018-06-19 12:45] LABS: ALBUMIN 3.4 g/dl (3.4-5.0); ALK PHOS 82 U/L (45-117); ANION GAP 8 MMOL/L (8-16); BILIRUBIN,TOTAL 1.3 mg/dL (0.2-1.0); BLOOD UREA NITROGEN 13 mg/dL (7-18); CALCIUM 8.7 mg/dL (8.5-10.1); CO2 28 mmol/L (21-32); CREATININE 0.7 mg/dL (0.7-1.3); GLUCOSE,RANDOM 68 mg/dL (74-106); SGOT/AST 18 U/L (15-37); SGPT/ALT 27 U/L (12-78); TOT PROT 6.4 g/dl (6.4-8.2)
[2018-06-19] MEDS: TOLNAFTATE 1% CREAM 15 GM TUBE TP SCH ×2 (14:13→22:06)
--- NOTE | 2018-06-19 17:25 | PN ---
[facility] CIWA - CIWA Score Nausea/Vomitin Muscle Tremors: None Anxiety: 3 Agitation: 3 Paroxysmal Sweats: 2 Orientation: 0-Oriented Tacttile Disturbances: 2-Mild Itch/Numbness/Burn Auditory Disturbances: 0-None Visual Disturbances: 2-Mild Sensitivity Headache: 0-None Present CIWA-Ar Total Score: 15 S COWS - Scale Resting Pulse: 0= [place] 80 or Below Sweatin= Chills/Flushing S Progress Note (SOAP) Subjective: Sweating, Diarrhea, Nausea. Objective: PATIENT A & O X 3, OBSERVED AMBULATING ON UNIT. NO ACUTE DISTRESS. 06/19/18 17:26 Vital Signs Temperature 97.7 F 06/19/18 17:12 Pulse Rate 66 06/19/18 17:12 Respiratory Rate 18 06/19/18 17:12 Blood Pressure 107/66 06/19/18 17:12 O2 Sat by Pulse Oximetry (%) Laboratory Tests 06/19/18 06/19/18 06/19/18 07:40 07:40 07:40 WBC 7.5 RBC 4.44 Hgb 12.9 Hct 39.1 MCV 88.1 MCH 28.9 MCHC 32.9 RDW 13.4 Plt Count 290 MPV 9.0 Sodium 142 Potassium 4.5 Chloride 106 Carbon Dioxide 28 Anion Gap 8 BUN 13 Creatinine 0.7 Creat Clearance w eGFR > 60 Random Glucose 68 L Calcium 8.7 Total Bilirubin 1.3 H AST 18 D ALT 27 D Alkaline Phosphatase 82 Total Protein 6.4 Albumin 3.4 RPR Titer Nonreactive LABS NOTED. UA RESULTS PENDING. 06/19/18 17:26 Assessment: 06/19/18 17:26 WITHDRAWAL SYMPTOMS. Plan: CONTINUE DETOX.
[2018-06-19 19:30] LABS: URINE APPEARANCE SLCLOUDY; URINE BILIRUBIN NEGATIVE (<2.0 mg/dL); URINE COLOR YELLOW; URINE GLUCOSE (UA) NEGATIVE (NEGATIVE); URINE KETONE NEGATIVE (NEGATIVE); URINE LEUK ESTERASE NEGATIVE (NEGATIVE); URINE NITRITE NEGATIVE (NEGATIVE); URINE PROTEIN NEGATIVE (NEGATIVE); URINE UROBILINOGEN NEGATIVE mg/dL (0.2-1.0)
[2018-06-19] MEDS: THIAMINE HCL 100 MG TABLET (FP) PO SCH (22:05)
[2018-06-20] MEDS: diazePAM 5 MG TABLET PO PRN ×4 (09:14→22:02)
[2018-06-20] MEDS ORDERED: METHADONE HCL 5 MG TABLET (FOR DETOX USE ONLY) PO ONE (10:00)
[2018-06-20] MEDS: TOLNAFTATE 1% CREAM 15 GM TUBE TP SCH ×2 (10:13→22:04)
[2018-06-20] MEDS: PRENATAL VITAMINS W/ FOLIC ACID TABLET (FP) PO SCH (10:14)
[2018-06-20] MEDS: NICOTINE 14 MG/24 HOURS TOPICAL PATCH TD SCH (10:16)
[2018-06-20] MEDS: NICOTINE POLACRILEX 2 MG GUM BUC PRN ×3 (12:22→21:09)
[2018-06-20] MEDS: THIAMINE HCL 100 MG TABLET (FP) PO SCH (22:02)
[2018-06-20] MEDS: MELATONIN 5 MG TABLETS PO PRN (22:24)
[2018-06-21] MEDS: NICOTINE POLACRILEX 2 MG GUM BUC PRN ×4 (08:32→19:09)
[2018-06-21] MEDS ORDERED: METHADONE HCL 5 MG TABLET (FOR DETOX USE ONLY) PO ONE (10:00)
[2018-06-21] MEDS: diazePAM 5 MG TABLET PO PRN ×4 (10:11→22:51)
[2018-06-21] MEDS: PRENATAL VITAMINS W/ FOLIC ACID TABLET (FP) PO SCH (10:11)
[2018-06-21] MEDS: NICOTINE 14 MG/24 HOURS TOPICAL PATCH TD SCH (10:12)
[2018-06-21] MEDS: TOLNAFTATE 1% CREAM 15 GM TUBE TP SCH ×2 (10:12→22:39)
--- NOTE | 2018-06-21 17:04 | PN ---
S COWS - Scale Resting Pulse: 0= [place] 80 or Below Sweatin= No chills or Flushing Restless Observation: 0= Sits Still Pupil Size: 0= Normal to Room Light Bone or Joint Aches: 0= None Runny Nose/ Eye Tearin= None GI Upset > 30mins: 0= None Tremor Observation of Outstretched Hands: 0= None Yawning Observation: 1= 1-2x During Session Anxiety or Irritability: 1=Feels Anxious/Irritable Goose Flesh Skin: 0=Smooth Skin COWS Score: 2 S Progress Note (SOAP) Subjective: pt states doing OK, going to outpt program Obj: Vital Signs - 24 hr 06/20/18 06/20/18 06/21/18 17:16 21:01 00:30 Temperature 98.0 F 97.7 F Pulse Rate 71 71 Respiratory 18 18 18 Rate Blood Pressure 102/60 111/68 06/21/18 06/21/18 06/21/18 03:30 06:16 06:30 Temperature 97.4 F L Pulse Rate 63 Respiratory 18 18 18 Rate Blood Pressure 97/54 06/21/18 06/21/18 11:21 14:31 Temperature 97.6 F 98.4 F Pulse Rate 55 L 70 Respiratory 18 18 Rate Blood Pressure 111/69 99/63 Laboratory Tests 06/19/18 06/19/18 06/19/18 07:40 07:40 07:40 WBC 7.5 RBC 4.44 Hgb 12.9 Hct 39.1 MCV 88.1 MCH 28.9 MCHC 32.9 RDW 13.4 Plt Count 290 MPV 9.0 Sodium 142 Potassium 4.5 Chloride 106 Carbon Dioxide 28 Anion Gap 8 BUN 13 Creatinine 0.7 Creat Clearance w eGFR > 60 Random Glucose 68 L Calcium 8.7 Total Bilirubin 1.3 H AST 18 D ALT 27 D Alkaline Phosphatase 82 Total Protein 6.4 Albumin 3.4 Urine Color Urine Appearance Urine pH Ur Specific [place] Urine Protein Urine Glucose (UA) Urine Ketones Urine Blood Urine Nitrite Urine Bilirubin Urine Urobilinogen Ur Leukocyte Esterase RPR Titer Nonreactive 06/19/18 18:00 WBC RBC Hgb Hct MCV MCH MCHC RDW Plt Count MPV Sodium Potassium Chloride Carbon Dioxide Anion Gap BUN Creatinine Creat Clearance w eGFR Random Glucose Calcium Total Bilirubin AST ALT Alkaline Phosphatase Total Protein Albumin Urine Color Yellow Urine Appearance Slcloudy Urine pH 7.0 Ur Specific [place] 1.015 Urine Protein Negative Urine Glucose (UA) Negative Urine Ketones Negative Urine Blood Negative Urine Nitrite Negative Urine Bilirubin Negative Urine Urobilinogen Negative Ur Leukocyte Esterase Negative RPR Titer labs VS WNL Ass/plan: 32 years old male with over 10 years history of heroin dependence is here for detox- pt doing well continue detox protocol
[2018-06-21] MEDS: THIAMINE HCL 100 MG TABLET (FP) PO SCH (22:36)
[2018-06-21] MEDS: MELATONIN 5 MG TABLETS PO PRN (22:37)
[2018-06-22] MEDS: NICOTINE POLACRILEX 2 MG GUM BUC PRN ×2 (08:54→22:02)
--- NOTE | 2018-06-22 09:40 | PN ---
[facility] Progress Note (SOAP) Subjective: pt without complaints today- says going for job interview, concerned about methadone in urine. O: Vital Signs - 24 hr 06/21/18 06/21/18 06/21/18 11:21 14:31 18:12 Temperature 97.6 F 98.4 F 97.6 F Pulse Rate 55 L 70 62 Respiratory 18 18 18 Rate Blood Pressure 111/69 99/63 114/57 06/21/18 06/22/18 06/22/18 22:20 00:30 03:30 Temperature 98.9 F Pulse Rate 66 Respiratory 18 18 18 Rate Blood Pressure 110/66 06/22/18 05:58 Temperature 97 F L Pulse Rate 67 Respiratory 16 Rate Blood Pressure 103/61 Laboratory Tests 06/19/18 06/19/18 06/19/18 07:40 07:40 07:40 WBC 7.5 RBC 4.44 Hgb 12.9 Hct 39.1 MCV 88.1 MCH 28.9 MCHC 32.9 RDW 13.4 Plt Count 290 MPV 9.0 Sodium 142 Potassium 4.5 Chloride 106 Carbon Dioxide 28 Anion Gap 8 BUN 13 Creatinine 0.7 Creat Clearance w eGFR > 60 Random Glucose 68 L Calcium 8.7 Total Bilirubin 1.3 H AST 18 D ALT 27 D Alkaline Phosphatase 82 Total Protein 6.4 Albumin 3.4 Urine Color Urine Appearance Urine pH Ur Specific [place] Urine Protein Urine Glucose (UA) Urine Ketones Urine Blood Urine Nitrite Urine Bilirubin Urine Urobilinogen Ur Leukocyte Esterase RPR Titer Nonreactive 06/19/18 18:00 WBC RBC Hgb Hct MCV MCH MCHC RDW Plt Count MPV Sodium Potassium Chloride Carbon Dioxide Anion Gap BUN Creatinine Creat Clearance w eGFR Random Glucose Calcium Total Bilirubin AST ALT Alkaline Phosphatase Total Protein Albumin Urine Color Yellow Urine Appearance Slcloudy Urine pH 7.0 Ur Specific [place] 1.015 Urine Protein Negative Urine Glucose (UA) Negative Urine Ketones Negative Urine Blood Negative Urine Nitrite Negative Urine Bilirubin Negative Urine Urobilinogen Negative Ur Leukocyte Esterase Negative RPR Titer A/p: continue detox- pt to go home tomorrow
[2018-06-22] MEDS ORDERED: METHADONE HCL 10 MG TABLET (FOR DETOX USE ONLY) PO ONE (10:00)
[2018-06-22] MEDS: PRENATAL VITAMINS W/ FOLIC ACID TABLET (FP) PO SCH (10:05)
[2018-06-22] MEDS: NICOTINE 14 MG/24 HOURS TOPICAL PATCH TD SCH (10:05)
[2018-06-22] MEDS: TOLNAFTATE 1% CREAM 15 GM TUBE TP SCH ×2 (10:05→22:03)
[2018-06-22] MEDS: THIAMINE HCL 100 MG TABLET (FP) PO SCH (22:02)
[2018-06-22] MEDS: MELATONIN 5 MG TABLETS PO PRN (22:02)
[2018-06-23 06:00] VITALS: BP 95/63; PULSE 60; TEMP 97.2
[2018-06-23] MEDS ORDERED: METHADONE HCL 5 MG TABLET (FOR DETOX USE ONLY) PO ONE (06:00)
--- NOTE | 2018-06-23 14:50 | PN ---
[facility] Progress Note (SOAP) Subjective: DETOX COMPLETED. ALERT O X 3. NAD. PT HAS A PRIMARY CARE PROVIDER DR ELVIS ARCEO AT [facility]. Objective: 06/23/18 14:49 Laboratory Tests 06/19/18 06/19/18 06/19/18 07:40 07:40 07:40 WBC 7.5 RBC 4.44 Hgb 12.9 Hct 39.1 MCV 88.1 MCH 28.9 MCHC 32.9 RDW 13.4 Plt Count 290 MPV 9.0 Sodium 142 Potassium 4.5 Chloride 106 Carbon Dioxide 28 Anion Gap 8 BUN 13 Creatinine 0.7 Creat Clearance w eGFR > 60 Random Glucose 68 L Calcium 8.7 Total Bilirubin 1.3 H AST 18 D ALT 27 D Alkaline Phosphatase 82 Total Protein 6.4 Albumin 3.4 Urine Color Urine Appearance Urine pH Ur Specific [place] Urine Protein Urine Glucose (UA) Urine Ketones Urine Blood Urine Nitrite Urine Bilirubin Urine Urobilinogen Ur Leukocyte Esterase RPR Titer Nonreactive 06/19/18 18:00 WBC RBC Hgb Hct MCV MCH MCHC RDW Plt Count MPV Sodium Potassium Chloride Carbon Dioxide Anion Gap BUN Creatinine Creat Clearance w eGFR Random Glucose Calcium Total Bilirubin AST ALT Alkaline Phosphatase Total Protein Albumin Urine Color Yellow Urine Appearance Slcloudy Urine pH 7.0 Ur Specific [place] 1.015 Urine Protein Negative Urine Glucose (UA) Negative Urine Ketones Negative Urine Blood Negative Urine Nitrite Negative Urine Bilirubin Negative Urine Urobilinogen Negative Ur Leukocyte Esterase Negative RPR Titer Assessment: 06/23/18 14:49 MEDICALLY STABLE Plan: D/C PT TODAY
--- NOTE | 2018-06-23 14:51 | DS ---
[facility] Detox Discharge Summary Admission Date: 06/18/18 Discharge Date: 06/23/18 - History Present History: Opioid Dependence Additional Comments: DETOX COMPLETED. ALERT O X 3. NAD. Pertinent Past History: PLEASE SEE DX BELOW - Physical Exam Results Vital Signs: Vital Signs Temperature 97.2 F L 06/23/18 05:59 Pulse Rate 60 06/23/18 05:59 Respiratory Rate 18 06/23/18 06:30 Blood Pressure 95/63 06/23/18 05:59 O2 Sat by Pulse Oximetry (%) Pertinent Admission Physical Exam Findings: WITHDRAWAL SX - Treatment Hospital Course: Detox Protocol Followed, Detoxed Safely, Responded well, Discharged Condition Good - Medication Discharge Medications: Ambulatory Orders Ranitidine [Zantac -] 150 mg PO BID #60 tablet 03/29/17 - Diagnosis (1) Opioid dependence with withdrawal Status: Acute (2) Weight loss Status: Acute (3) GERD (gastroesophageal reflux disease) Status: Chronic Qualifiers: Esophagitis presence: esophagitis presence not specified Qualified Code(s) : K21.9 - Gastro-esophageal reflux disease without esophagitis (4) Nicotine dependence Status: Acute Qualifiers: Nicotine product type: cigarettes Substance use status: in withdrawal Qualified Code(s): F17.213 - Nicotine dependence, cigarettes, with withdrawal - AMA Did Patient Leave Against Medical Advice: No
== END 2018-06-23 09:00 | disposition home or self-care (01) | DRG 773 ==
LOC: YASAS 18:14 → Y3N 21:18
PROC: HZ2ZZZZ Detoxification Services for Substance Abuse Treatment (ICD-10-PCS; principal; 2018-06-18)
DX: F11.23 Opioid dependence with withdrawal (principal); F17.213 Nicotine dependence, cigarettes, with withdrawal; F41.9 Anxiety disorder, unspecified; F32.9 Major depressive disorder, single episode, unspecified; K21.9 Gastro-esophageal reflux disease without esophagitis; R63.4 Abnormal weight loss; Z68.23 Body mass index [BMI] 23.0-23.9, adult
CPT/HCPCS: 36415; 80053; 81003; 85027; 86593; 93005; 93010

== ENCOUNTER 2018-09-08 16:01 | Inpatient (IN) | payer OTHER ==
[2018-09-08 20:09] VITALS: BMI 21.9
--- NOTE | 2018-09-08 20:43 | HP ---
COWS - Scale Resting Pulse: 0= [place] 80 or Below Sweatin= Chills/Flushing Restless Observation: 0= Sits Still Pupil Size: 1= Pupils >than Normal Bone or Joint Aches: 4=Acute Joint/Muscle Pain Runny Nose/ Eye Tearin= Runny Nose/Eyes GI Upset > 30mins: 2= Nausea/Diarrhea (diarrhea x 2) Tremor Observation: 2= Slight Tremor Visible Yawning Observation: 0= None Anxiety or Irritability: 2=Irritable/Anxious Goose Flesh Skin: 3=Piloerection COWS Score: 17 CIWA Score - Admission Criteria [facility] Guidelines: Admission for Medically Managed Detox: Requires at least one of the followin. CIWA greater than 12 2. Seizures within the past 24 hours 3. Delirium tremens within the past 24 hours 4. Hallucinations within the past 24 hours 5. Acute intervention needed for co occurring medical disorder 6. Acute intervention needed for co occurring psychiatric disorder 7. Severe withdrawal that cannot be handled at a lower level of care (continued vomiting, continued diarrhea, abnormal vital signs) requiring intravenous medication and/or fluids 8. Admission ROS [facility] Chief Complaint: Herion withdrawal symptoms Allergies/Adverse Reactions: Allergies Allergy/AdvReac Type Severity Reaction Status Date / Time No Known Allergies Allergy Verified 09/08/18 20:10 History of Present Illness: 32 years old male with ten years history of heroin dependence is seeking admission to detox. Patient has been in previous detox and reports 2 years and eight months period of sobriety. He has medical history of anxiety, GERD, depression. He denies suicide attempt and suicidal ideation at this time. Exam Limitations: No Limitations - Ebola screening Have you traveled outside of the country in the last 21 days: No Have you had contact with anyone from an Ebola affected area: No Have you been sick,other than usual withdrawal symptoms: No - Review of Systems Constitutional: Chills, Loss of Appetite, Malaise, Changes in sleep EENT: reports: Sinus Pressure Respiratory: reports: No Symptoms reported Cardiac: reports: No Symptoms Reported GI: reports: Diarrhea, Poor Appetite, Poor Fluid Intake, Rectal Bleeding, Abdominal cramping : reports: No Symptoms Reported Musculoskeletal: reports: No Symptoms Reported Integumentary: reports: Dryness Neuro: reports: Tremors Endocrine: reports: No Symptoms Reported Hematology: reports: No Symptoms Reported Psychiatric: reports: Judgement Intact, Depressed Other Systems: Reviewed and Negative Patient History - Patient Medical History Hx Anemia: No Hx Asthma: No Hx Chronic Obstructive Pulmonary Disease (COPD): No Hx Cancer: No Hx Cardiac Disorders: No Hx Congestive Heart Failure: No Hx Hypertension: No Hx Hypercholesterolemia: No Hx Pacemaker: No HX Cerebrovascular Accident: No Hx Seizures: No Hx Dementia: No Hx Diabetes: No Hx Gastrointestinal Disorders: No Hx Liver Disease: No Hx Genitourinary Disorders: No Hx Sexually Transmitted Disorders: No Hx Renal Disease (ESRD): No Hx Thyroid Disease: No Hx Human Immunodeficiency Virus (HIV): No Hx Hepatitis C: No Hx Depression: Yes (Not on medication) Hx Suicide Attempt: No (Denies suicide attempt and suicidal ideation at this time) Hx Bipolar Disorder: No Hx Schizophrenia: No Other Medical History: anxiety - Not on medication - Patient Surgical History Past Surgical History: No Hx Neurologic Surgery: No Hx Cataract Extraction: No Hx Cardiac Surgery: No Hx Lung Surgery: No Hx Breast Surgery: No Hx Breast Biopsy: No Hx Abdominal Surgery: No Hx Appendectomy: No Hx Cholecystectomy: No Hx Genitourinary Surgery: No Hx Section: No Hx Orthopedic Surgery: No Anesthesia Reaction: No - PPD History Date: 06/20/18 - Smoking Cessation Smoking history: Current every day smoker Have you smoked in the past 12 months: Yes Aproximately how many cigarettes per day: 10 Cigars Per Day: 0 Hx Chewing Tobacco Use: No Initiated information on smoking cessation: Yes 'Breaking Loose' booklet given: 09/08/18 - Substances Abused Heroin Route: SNIFF Frequency: Daily Amount used: 1 BUNDLE Age of first use: 20 Date of Last Use: 09/08/18 Marijuana/Hashish Route: Smoking Frequency: 1-2 times per week Amount used: $5 Age of first use: 16 Date of Last Use: 09/08/18 Family Disease History - Family Disease History Family Disease History: Diabetes: Father, Heart Disease: Father, Other: Mother ( kidney) Admission Physical Exam [facility] - Vital Signs Vital Signs: Vital Signs - 24 hr 09/08/18 19:55 Temperature 97.6 F Pulse Rate 67 Respiratory 18 Rate Blood Pressure 123/74 - Physical General Appearance: Yes: Moderate Distress, Sweating HEENTM: Yes: Hearing grossly Normal, Normal ENT Inspection, Normocephalic, Normal Voice, OSWALD Respiratory: Yes: Lungs Clear, Normal Breath Sounds, No Respiratory Distress Neck: Yes: Supple Breast: Yes: Breast Exam Deferred Cardiology: Yes: Regular Rhythm, Regular Rate Abdominal: Yes: Normal Bowel Sounds Genitourinary: Yes: Within Normal Limits Back: Yes: Normal Inspection Musculoskeletal: Yes: Muscle Pain Extremities: Yes: Tremors Neurological: Yes: technical program manager II-XII NML intact, Alert, Normal Mood/Affect, Normal Response Integumentary: Yes: Warm Lymphatic: Yes: Within Normal Limits - Diagnostic (1) Nicotine dependence Current Visit: No Status: Acute Qualifiers: Nicotine product type: cigarettes Substance use status: in withdrawal Qualified Code(s): F17.213 - Nicotine dependence, cigarettes, with withdrawal (2) Opioid dependence with withdrawal Current Visit: No Status: Acute (3) Anxiety Current Visit: No Status: Chronic (4) Cannabis dependence, uncomplicated Current Visit: No Status: Chronic (5) Depression Current Visit: No Status: Chronic Qualifiers: Depression Type: unspecified Qualified Code(s): F32.9 - Major depressive disorder, single episode, unspecified (6) GERD (gastroesophageal reflux disease) Current Visit: No Status: Chronic Qualifiers: Esophagitis presence: esophagitis presence not specified Qualified Code(s) : K21.9 - Gastro-esophageal reflux disease without esophagitis Cleared for Admission [facility] - Detox or Rehab [facility] Level of Care: Medically Managed Detox Regimen/Protocol: Methadone [facility] Breath Alcohol Content Breath Alcohol Content: 0 Urine Drug Screen - Results Urine Drug Screen Results: THC-Marijuana, OPI-Opiates, FEN-Fentanyl
[2018-09-08] MEDS ORDERED: MENTHOL/PHENOL 1 EACH UD MM PRN (20:49)
[2018-09-08] MEDS ORDERED: METHADONE HCL 10 MG TABLET (FOR DETOX USE ONLY) PO ONE ×2 (20:49→23:00)
[2018-09-08] MEDS ORDERED: guaiFENesin/D-METHORPHAN HB 10 ML UNIT-DOSE CUPS PO PRN (20:49)
[2018-09-08] MEDS ORDERED: MAGNESIUM HYDROX 2400MG/30ML ORAL SUSPENSION 30 ML CUP PO PRN (20:49)
[2018-09-08] MEDS ORDERED: LOPERAMIDE HCL 2 MG CAPSULE PO PRN (20:49)
[2018-09-08] MEDS ORDERED: P-EPHED 60MG/TRIPROLIDI 2.5MG TABLET PO PRN (20:49)
[2018-09-08] MEDS ORDERED: MAG HYDROX/AL HYDROX/SIMETH 30 ML UNIT-DOSE CUP PO PRN (20:49)
[2018-09-08] MEDS ORDERED: MAGNESIUM CITRATE 300 ML BOTTLE PO PRN (20:49)
[2018-09-08] MEDS ORDERED: ACETAMINOPHEN 325 MG TABLET (FP) PO PRN (20:49)
[2018-09-08] MEDS ORDERED: IBUPROFEN 400 MG TABLET (FP) PO PRN (20:49)
[2018-09-08] MEDS ORDERED: MELATONIN 5 MG TABLETS PO PRN (22:00)
[2018-09-08] MEDS: diazePAM 5 MG TABLET PO PRN (22:24)
[2018-09-08] MEDS: THIAMINE HCL 100 MG TABLET (FP) PO SCH (22:24)
[2018-09-08] MEDS: NICOTINE POLACRILEX 2 MG GUM BC PRN (22:31)
[2018-09-09 02:57] LABS: URINE APPEARANCE CLEAR; URINE BILIRUBIN NEGATIVE (<2.0 mg/dL); URINE COLOR YELLOW; URINE GLUCOSE (UA) NEGATIVE (NEGATIVE); URINE KETONE NEGATIVE (NEGATIVE); URINE LEUK ESTERASE NEGATIVE (NEGATIVE); URINE NITRITE NEGATIVE (NEGATIVE); URINE PROTEIN NEGATIVE (NEGATIVE); URINE UROBILINOGEN NEGATIVE mg/dL (0.2-1.0)
[2018-09-09] MEDS: diazePAM 5 MG TABLET PO PRN ×5 (06:33→22:35)
[2018-09-09] MEDS ORDERED: PRENATAL VITAMINS W/ FOLIC ACID TABLET (FP) PO SCH (10:00)
[2018-09-09] MEDS ORDERED: METHADONE HCL 10 MG TABLET (FOR DETOX USE ONLY) PO ONE (10:00)
[2018-09-09] MEDS ORDERED: NICOTINE 14 MG/24 HOURS TOPICAL PATCH TD SCH (10:00)
[2018-09-09 10:07] LABS: HEMATOCRIT 41.7 % (35.4-49); HEMOGLOBIN 13.4 GM/dL (11.7-16.9); MCH 28.9 pg (25.7-33.7); MCHC 32.1 g/dl (32.0-35.9); MEAN PLT VOLUME 8.8 fl (7.5-11.1); PLATELET COUNT 297 K/MM3 (134-434); RBC 4.64 M/mm3 (4.00-5.60); RDW 13.6 % (11.9-15.9); WHITE BLOOD COUNT 7.1 K/mm3 (4.0-10.0)
[2018-09-09] MEDS: NICOTINE POLACRILEX 2 MG GUM BC PRN ×2 (10:35→17:31)
--- NOTE | 2018-09-09 10:59 | PN ---
[facility] COWS - Scale Resting Pulse: 0= [place] 80 or Below Sweatin= Chills/Flushing Restless Observation: 1= Difficult to Sit Still Pupil Size: 1= Pupils >than Normal Bone or Joint Aches: 1= Mild Discomfort Runny Nose/ Eye Tearin= Nasal Congestion GI Upset > 30mins: 2= Nausea/Diarrhea Tremor Observation of Outstretched Hands: 2= Slight Tremor Visible Yawning Observation: 2= >3x During Session Anxiety or Irritability: 2=Irritable/Anxious Goose Flesh Skin: 0=Smooth Skin COWS Score: 13 [facility] Progress Note (SOAP) Subjective: body ache muscle cramp tremor sweat trouble sleep at night Objective: 09/09/18 11:07 Vital Signs Temperature 98.1 F 09/09/18 09:33 Pulse Rate 69 09/09/18 09:33 Respiratory Rate 18 09/09/18 09:33 Blood Pressure 100/50 L 09/09/18 09:33 O2 Sat by Pulse Oximetry (%) Laboratory Last Values WBC 7.1 K/mm3 (4.0-10.0) 09/09/18 07:00 RBC 4.64 M/mm3 (4.00-5.60) 09/09/18 07:00 Hgb 13.4 GM/dL (11.7-16.9) 09/09/18 07:00 Hct 41.7 % (35.4-49) 09/09/18 07:00 MCV 90.0 fl (80-96) 09/09/18 07:00 MCH 28.9 pg (25.7-33.7) 09/09/18 07:00 MCHC 32.1 g/dl (32.0-35.9) 09/09/18 07:00 RDW 13.6 % (11.9-15.9) 09/09/18 07:00 Plt Count 297 K/MM3 (134-434) 09/09/18 07:00 MPV 8.8 fl (7.5-11.1) 09/09/18 07:00 Sodium 139 mmol/L (136-145) 09/09/18 07:00 Potassium 4.3 mmol/L (3.5-5.1) 09/09/18 07:00 Chloride 102 mmol/L (98-107) 09/09/18 07:00 Carbon Dioxide 25 mmol/L (21-32) 09/09/18 07:00 Anion Gap 11 MMOL/L (8-16) 09/09/18 07:00 BUN 12 mg/dL (7-18) 09/09/18 07:00 Creatinine 0.9 mg/dL (0.55-1.3) 09/09/18 07:00 Creat Clearance w eGFR > 60 (>60) 09/09/18 07:00 Random Glucose 77 mg/dL (74-106) 09/09/18 07:00 Calcium 8.8 mg/dL (8.5-10.1) 09/09/18 07:00 Total Bilirubin 0.5 mg/dL (0.2-1) 09/09/18 07:00 AST 19 U/L (15-37) 09/09/18 07:00 ALT 34 U/L (13-61) 09/09/18 07:00 Alkaline Phosphatase 94 U/L (45-117) 09/09/18 07:00 Total Protein 6.8 g/dl (6.4-8.2) 09/09/18 07:00 Albumin 3.6 g/dl (3.4-5.0) 09/09/18 07:00 Urine Color Yellow 09/08/18 23:53 Urine Appearance Clear 09/08/18 23:53 Urine pH 6.0 (5.0-8.0) 09/08/18 23:53 Ur Specific [place] 1.021 (1.010-1.035) 09/08/18 23:53 Urine Protein Negative (NEGATIVE) 09/08/18 23:53 Urine Glucose (UA) Negative (NEGATIVE) 09/08/18 23:53 Urine Ketones Negative (NEGATIVE) 09/08/18 23:53 Urine Blood Negative (NEGATIVE) 09/08/18 23:53 Urine Nitrite Negative (NEGATIVE) 09/08/18 23:53 Urine Bilirubin Negative (<2.0 mg/dL) 09/08/18 23:53 Urine Urobilinogen Negative mg/dL (0.2-1.0) 09/08/18 23:53 Ur Leukocyte Esterase Negative (NEGATIVE) 09/08/18 23:53 lab noted Assessment: 09/09/18 11:08 withdrawal sx Plan: continue detox
[2018-09-09 11:04] LABS: ALBUMIN 3.6 g/dl (3.4-5.0); ALK PHOS 94 U/L (45-117); ANION GAP 11 MMOL/L (8-16); BILIRUBIN,TOTAL 0.5 mg/dL (0.2-1); BLOOD UREA NITROGEN 12 mg/dL (7-18); CALCIUM 8.8 mg/dL (8.5-10.1); CHLORIDE 102 mmol/L (98-107); CO2 25 mmol/L (21-32); CREATININE 0.9 mg/dL (0.55-1.3); GLUCOSE,RANDOM 77 mg/dL (74-106); POTASSIUM 4.3 mmol/L (3.5-5.1); SGOT/AST 19 U/L (15-37); SGPT/ALT 34 U/L (13-61); SODIUM 139 mmol/L (136-145); TOT PROT 6.8 g/dl (6.4-8.2)
--- NOTE | 2018-09-09 13:33 | CONSULT ---
[facility] Psychiatric Consult - Data Date of interview: 09/09/18 Admission source: [facility] Identifying data: Patient is a 32 year old male, father of one, unemployed, and is residing with family. This is one of multiple admisions for patient. Patient admitted to for opiate dependence. Substance Abuse History: - Smoking Cessation. Smoking history: Current every day smoker. Have you smoked in the past 12 months: Yes. Aproximately how many cigarettes per day: 10. Cigars Per Day: 0. Hx Chewing Tobacco Use: No. Initiated information on smoking cessation: Yes. 'Breaking Loose' booklet given : 09/08/18. - Substances Abused. Heroin. Route: SNIFF. Frequency: Daily. Amount used: 1 BUNDLE. Age of first use: 20. Date of Last Use: 09/08/18. * * Marijuana/Hashish. Route: Smoking. Frequency: 1-2 times per week. Amount used: $5. Age of first use: 16. Date of Last Use: 09/08/18 Medical History: denies. Psychiatric History: Patient seen by video game script writer on 06/09/18 and reports no changes since his most recent admission to detox. Patient's first psychiatric contact was at 16 years of age while in detox at [facility]. Pt. states he was retained on a psychiatric unit for fourteen days. He was diagnosed with Bipolar disorder and prescribed risperdal. Following discharge, pt. continued follow up care at [facility] outpatient clinic in which he was reevaulated and told by a psychiatrist that he was misdiagnose and did not have a diagnoses of bipolar disorder. Eventually patient discontinued outpatient psychiatric care and reports being mentally stable. Pt. is currently attending the "[facility] " outpatient program in [facility] and as per the requirement of the program see's the psychiatrist Dr. rosenbaum once a month. Patient is not taking psychotropic medications. Physical/Sexual Abuse/Trauma History: denies. Mental Status Exam - Mental Status Exam Alert and Oriented to: Time, Place, Person Cognitive Function: Good Patient Appearance: Well Groomed Mood: Hopeful, Euthymic Affect: Appropriate, Mood Congruent Patient Behavior: Appropriate, Cooperative Speech Pattern: Clear, Appropriate Voice Loudness: Normal Thought Process: Intact, Goal Oriented Thought Disorder: Not Present Hallucinations: Denies Suicidal Ideation: Denies Homicidal Ideation: Denies Insight/Judgement: Poor Sleep: Fair Appetite: Fair Muscle strength/Tone: Normal Gait/Station: Normal Psychiatric Findings - Problem List ([place] 1, 2,3) (1) Nicotine dependence Current Visit: Yes Status: Chronic Qualifiers: Nicotine product type: cigarettes Substance use status: in withdrawal Qualified Code(s): F17.213 - Nicotine dependence, cigarettes, with withdrawal (2) Opioid dependence with withdrawal Current Visit: Yes Status: Acute (3) Cannabis dependence, uncomplicated Current Visit: No Status: Chronic - Initial Treatment Plan Initial Treatment Plan: Psychoeducation provided. Detoxification in progress. Observation.
[2018-09-09] MEDS: THIAMINE HCL 100 MG TABLET (FP) PO SCH (22:34)
[2018-09-10] MEDS: diazePAM 5 MG TABLET PO PRN ×2 (02:36→06:45)
[2018-09-10 09:47] VITALS: BP 106/63; PULSE 82; TEMP 97.7
[2018-09-10] MEDS ORDERED: METHADONE HCL 5 MG TABLET (FOR DETOX USE ONLY) PO ONE (10:00)
--- NOTE | 2018-09-10 11:36 | DS ---
[facility] Detox Discharge Summary Admission Date: 09/08/18 Discharge Date: 09/10/18 - History Present History: Opioid Dependence Additional Comments: 32 years old male admitted on 09/08/18 for opiate withdrawal sx insists to leave the detox unit patient is alert oriented x 3 no acute distress denies suicidal denies homocidal no self destructive behavior aftercare [facility] - Physical Exam Results Vital Signs: Vital Signs Temperature 97.7 F 09/10/18 09:46 Pulse Rate 82 09/10/18 09:46 Respiratory Rate 18 09/10/18 09:46 Blood Pressure 106/63 09/10/18 09:46 O2 Sat by Pulse Oximetry (%) Pertinent Admission Physical Exam Findings: opiate withdrawal sx Vital Signs Temperature 97.7 F 09/10/18 09:46 Pulse Rate 82 09/10/18 09:46 Respiratory Rate 18 09/10/18 09:46 Blood Pressure 106/63 09/10/18 09:46 O2 Sat by Pulse Oximetry (%) Laboratory Last Values WBC 7.1 K/mm3 (4.0-10.0) 09/09/18 07:00 RBC 4.64 M/mm3 (4.00-5.60) 09/09/18 07:00 Hgb 13.4 GM/dL (11.7-16.9) 09/09/18 07:00 Hct 41.7 % (35.4-49) 09/09/18 07:00 MCV 90.0 fl (80-96) 09/09/18 07:00 MCH 28.9 pg (25.7-33.7) 09/09/18 07:00 MCHC 32.1 g/dl (32.0-35.9) 09/09/18 07:00 RDW 13.6 % (11.9-15.9) 09/09/18 07:00 Plt Count 297 K/MM3 (134-434) 09/09/18 07:00 MPV 8.8 fl (7.5-11.1) 09/09/18 07:00 Sodium 139 mmol/L (136-145) 09/09/18 07:00 Potassium 4.3 mmol/L (3.5-5.1) 09/09/18 07:00 Chloride 102 mmol/L (98-107) 09/09/18 07:00 Carbon Dioxide 25 mmol/L (21-32) 09/09/18 07:00 Anion Gap 11 MMOL/L (8-16) 09/09/18 07:00 BUN 12 mg/dL (7-18) 09/09/18 07:00 Creatinine 0.9 mg/dL (0.55-1.3) 09/09/18 07:00 Creat Clearance w eGFR > 60 (>60) 09/09/18 07:00 Random Glucose 77 mg/dL (74-106) 09/09/18 07:00 Calcium 8.8 mg/dL (8.5-10.1) 09/09/18 07:00 Total Bilirubin 0.5 mg/dL (0.2-1) 09/09/18 07:00 AST 19 U/L (15-37) 09/09/18 07:00 ALT 34 U/L (13-61) 09/09/18 07:00 Alkaline Phosphatase 94 U/L (45-117) 09/09/18 07:00 Total Protein 6.8 g/dl (6.4-8.2) 09/09/18 07:00 Albumin 3.6 g/dl (3.4-5.0) 09/09/18 07:00 Urine Color Yellow 09/08/18 23:53 Urine Appearance Clear 09/08/18 23:53 Urine pH 6.0 (5.0-8.0) 09/08/18 23:53 Ur Specific [place] 1.021 (1.010-1.035) 09/08/18 23:53 Urine Protein Negative (NEGATIVE) 09/08/18 23:53 Urine Glucose (UA) Negative (NEGATIVE) 09/08/18 23:53 Urine Ketones Negative (NEGATIVE) 09/08/18 23:53 Urine Blood Negative (NEGATIVE) 09/08/18 23:53 Urine Nitrite Negative (NEGATIVE) 09/08/18 23:53 Urine Bilirubin Negative (<2.0 mg/dL) 09/08/18 23:53 Urine Urobilinogen Negative mg/dL (0.2-1.0) 09/08/18 23:53 Ur Leukocyte Esterase Negative (NEGATIVE) 09/08/18 23:53 RPR Titer Nonreactive (NONREACTIVE) 09/09/18 07:00 lab noted - Treatment Hospital Course: Detox Protocol Followed, Responded well Patient has Accepted a Rehab Referral to: [facility] - Medication Discharge Medications: Ambulatory Orders NK [No Known Home Medication] 09/08/18 - Diagnosis (1) Opioid dependence with withdrawal Status: Acute (2) Weight loss Status: Acute (3) GERD (gastroesophageal reflux disease) Status: Chronic Qualifiers: Esophagitis presence: esophagitis presence not specified Qualified Code(s) : K21.9 - Gastro-esophageal reflux disease without esophagitis (4) Nicotine dependence Status: Acute Qualifiers: Nicotine product type: cigarettes Substance use status: in withdrawal Qualified Code(s): F17.213 - Nicotine dependence, cigarettes, with withdrawal - AMA Did Patient Leave Against Medical Advice: Yes
[2018-09-11] MEDS ORDERED: METHADONE HCL 5 MG TABLET (FOR DETOX USE ONLY) PO ONE (10:00)
[2018-09-12] MEDS ORDERED: METHADONE HCL 10 MG TABLET (FOR DETOX USE ONLY) PO ONE (10:00)
[2018-09-13] MEDS ORDERED: METHADONE HCL 5 MG TABLET (FOR DETOX USE ONLY) PO ONE (06:00)
== END 2018-09-10 09:38 | disposition left against medical advice (07) | DRG 770 ==
LOC: YASAS 16:01 → Y6N 21:12
PROVIDERS: ADMIT Neuromusculoskeletal Medicine & OMM; ATTEND Neuromusculoskeletal Medicine & OMM
PROC: HZ2ZZZZ Detoxification Services for Substance Abuse Treatment (ICD-10-PCS; principal; 2018-09-08)
DX: F11.23 Opioid dependence with withdrawal (principal); F12.20 Cannabis dependence, uncomplicated; F17.213 Nicotine dependence, cigarettes, with withdrawal; F41.9 Anxiety disorder, unspecified; F32.9 Major depressive disorder, single episode, unspecified; K21.9 Gastro-esophageal reflux disease without esophagitis; R63.4 Abnormal weight loss; Z68.21 Body mass index [BMI] 21.0-21.9, adult
CPT/HCPCS: 36415; 80053; 81003; 85027; 86593